=== PATIENT | male | born 1945 | race Caucasian/White ===

== ENCOUNTER 2016-12-11 07:55 | Inpatient (IN) | payer MEDICARE, OTHER ==
[2016-12-11] VITALS (9 sets, daily range): BP systolic 129–157; BP diastolic 64–78; PULSE 65–78; RESP 23; Ht 175.3 cm; Wt 75.0 kg
[~2016-12-11] VITALS: Ht 175.3 cm; Wt 75.0 kg
[2016-12-11 08:12] LABS: ADD SCAN DIFF NO
[2016-12-11 08:20] LABS: BASOPHILS % 0.3 % (0.0-2.0); EOSINOPHILS # 0.1 10^3/ul (0.0-0.5); EOSINOPHILS % 0.8 % (0.0-7.0); HEMATOCRIT 42.3 % (42.0-52.0); HEMOGLOBIN 13.5 g/dl (14.0-18.0); LYMPHOCYTES # 0.9 10^3/ul (0.8-2.9); LYMPHOCYTES % 6.9 % (15.0-51.0); MEAN CORPUSCULAR HEMOGLOBIN 28.4 pg (29.0-33.0); MEAN CORPUSCULAR HGB CONC 31.9 g/dl (32.0-37.0); MEAN CORPUSCULAR VOLUME 89.1 fl (82.0-101.0); MEAN PLATELET VOLUME 10.5 fl (7.4-10.4); MONOCYTE # 0.6 10^3/ul (0.3-0.9); MONOCYTES % 4.5 % (0.0-11.0); NEUTROPHIL # 11.3 10^3/ul (1.6-7.5); NEUTROPHILS % 87.1 % (39.0-77.0); PLATELET COUNT 240 10^3/UL (140-415); RED BLOOD COUNT 4.75 10^6/ul (4.70-6.10); RED CELL DISTRIBUTION WIDTH 16.4 % (11.5-14.5)
[2016-12-11 08:31] LABS: ALBUMIN 4.2 g/dl (3.3-4.9)
[2016-12-11 08:32] LABS: POTASSIUM 4.2 mmol/L (3.5-5.1)
[2016-12-11 08:34] LABS: ALBUMIN/GLOBULIN RATIO 1.4; CREATININE 4.8 mg/dl (0.61-1.24); TOTAL PROTEIN 7.2 g/dl (6.1-8.1)
[2016-12-11 08:36] LABS: INR 1.15; PROTIME 14.7 Sec (12.2-14.2); PT RATIO 1.1
[2016-12-11 08:37] LABS: PARTIAL THROMBOPLASTIN TIME 56.7 Sec (25.0-35.0)
[2016-12-11 08:43] LABS: TROPONIN-I 0.033 ng/ml (0.00-0.12)
[2016-12-11] MEDS ORDERED: ALBU2.5V3 NEB ×2 (08:45→09:51)
[2016-12-11] MEDS ORDERED: SITA25TA3 PO (08:45)
[2016-12-11] MEDS ORDERED: AMIO200T2 PO (08:46)
--- NOTE | 2016-12-11 08:51 | RADRPT ---
PROCEDURE: XR Chest. CLINICAL INDICATION: Chest pain , sepsis TECHNIQUE: Single frontal view of the chest was obtained COMPARISON: None FINDINGS: The heart is enlarged. The thoracic aorta is calcified. There is a right-sided Perma-Cath in place. There are patchy right upper lobe, right lower lobe and left perihilar infiltrates. There is no pleural effusion or pneumothorax. RPTAT: AA IMPRESSION: Patchy right upper lobe, right lower lobe and left perihilar infiltrates. Mild cardiomegaly. Calcified aorta consistent with atherosclerotic disease. .Rigoberto Cobos MD, MD Date Time Electronically viewed and signed by .Rigoberto Cobos MD, on 12/11/2016 08:51 .S/
[2016-12-11] MEDS ORDERED: CEFEPIME 2GM/50 ML (PMX) 50 ML IVPB STA (08:55)
[2016-12-11] MEDS ORDERED: VANCOMYCIN 1 GM (PMX) 250 ML IVPB ONE (09:00)
[2016-12-11 09:03] LABS: AADO2 Arterial 240.8 mmHg (7.0-24.0); Allen Test ACCEPTAB; Arterial Base Excess -4.8 mmol/L (-3.0-3); Arterial COHb 0.4 % (0.0-3.0); Arterial Fraction of Oxyhgb 98.9 % (93.0-99.0); Arterial HCO3 21.6 mmol/L (22.0-26.0); Arterial MetHb 0.4 % (0.0-1.5); Arterial Total Hemglobin 14.2 g/dl (12.0-18.0); Blood Gas IEPAP 20/8; MODE MASK - BIPAP
[2016-12-11] MEDS ORDERED: SERT25TA83 PO (09:47)
[2016-12-11] MEDS ORDERED: AMLO-147 PO (09:47)
[2016-12-11] MEDS ORDERED: FURO80TA3 PO (09:47)
[2016-12-11] MEDS ORDERED: HYDR5TAB PO (09:48)
[2016-12-11] MEDS ORDERED: METO50TA16 PO (09:48)
[2016-12-11] MEDS ORDERED: TAMS0.4C2 PO (09:49)
[2016-12-11] MEDS ORDERED: METO-429 PO (09:49)
[2016-12-11] MEDS ORDERED: ASPI-716 PO (09:49)
[2016-12-11] MEDS ORDERED: BUDE6.9H INHALATION (09:50)
[2016-12-11] MEDS ORDERED: LORA1TAB PO (09:50)
[2016-12-11] MEDS ORDERED: ATOR20TA38 PO (09:50)
[2016-12-11] MEDS ORDERED: IPRA3AMP INHALATION (09:51)
--- NOTE | 2016-12-11 10:18 | CONS ---
Date/Time of Note Date/Time of Note DATE: 12/11/16 TIME: 10:13 Assessment/Plan Assessment/Plan Additional Assessment/Plan ABG, chest x-ray and labs were reviewed. Chest x-ray showing bilateral pneumonia. Assessment recommendations; next 1. Patient admitted for bilateral pneumonia currently on vancomycin and cefepime. 2. End-stage renal disease on hemodialysis. 3. History of pheochromocytoma status post adrenal surgery. 4. Diabetes. Continue BiPAP for now add Levaquin 50 mg IV daily. He needs to be admitted to ICU. If he decompensates, likely will need intubation. I did have a detailed discussion the patient's son and at bedside and answered all questions. Consultation Date/Type/Reason Admit Date/Time Date of Consultation: Dec 11, 2016 Type of Consultation: Pulmonary/critical care Reason for Consultation Pulmonary consultation obtained for evaluation of severe shortness of breath due to bilateral pneumonia. History of present illness; patient is a pleasant 70-year-old white male who was brought into the emergency room sent him over from dialysis center with complaints of shortness of breath. According to the patient's son and were present in the room the patient has been experiencing shortness of breath since early this morning and prior to that he was doing fairly well. There is also history of low-grade fever with scant cough and sputum production. Upon evaluation he had a chest x-ray was done which is showing bilateral pneumonia more pronounced in the right lower lobe area. Patient has been started on BiPAP with some relief in symptoms there is most of any nausea vomiting any high -grade fever or chills. Past medical history; next 1. End-stage renal disease on hemodialysis. 2. Diabetes next 3. 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 History of adrenal gland surgery due to pheochromocytoma. 5. History of prostate cancer status post prostatectomy. 6. COPD. Medications; were reviewed. Allergies; none. Social history; patient quit smoking 8 years ago. No acute alcohol or drug abuse. Family history; patient is his is present in the room patient has 2 sons. Occupational history; patient was involved in shipping business. Review of systems; limited review of systems could be obtained as the patient is on BiPAP. Patient denies any headache, seizures. Any chest pain. Angina. Complains of cough with scant sputum production. Shortness of breath is markedly improved. Denies any abdominal pain, nausea vomiting, any diarrhea. General examination; elderly male, appears in mild distress. Awake and alert. Social History Smoking Status: Never smoker Exam/Review of Systems Vital Signs Vitals Vital Signs Date Time Temp Pulse Resp B/P Pulse Ox O2 Delivery O2 Flow Rate FiO2 12/11/16 09:00 69 99 30 12/11/16 08:14 Bag Valve Mask 12/11/16 07:57 98.1 28 155/85 Exam HEENT exam; supple neck, no JVD. No lymphadenopathy. Midline trachea. No thyromegaly. Pharynx was not examined. She has a few remaining teeth. Pupils are midsize and reactive to light. Chest examination; scattered crackles bilaterally. S1-S2 audible, no murmurs. Regular rhythm. There is a right subclavian dialysis catheter in place. Abdomen examination; soft, nondistended. Nontender. No organomegaly. Bowel sounds audible. Extremity examination; no peripheral edema. No clubbing. P D DRIVER examination; no focal deficit. Results Result Diagram: 12/11/1680412/11/16804 Results 24 hrs Laboratory Tests Test 12/11/16 07:57 12/11/16 08:05 Arterial Blood HCO3 21.6 L Arterial Blood Base Excess -4.8 L Arterial Blood Oxygen Saturation 99.7 Landry Test ACCEPTAB Arterial Blood Gas Puncture Site Right Radial Arterial Blood Carboxyhemoglobin 0.4 Arterial Blood Date Drawn 12/11/2016 8:55:33 AM Arterial Blood Methemoglobin 0.4 Arterial Blood pCO2 (Temp correct) 44.6 Arterial Blood pH (Temp corrected) 7.302 L Arterial Blood pO2 (Temp corrected) 427.6 H Blood Gas A-a O2 Differential 240.8 H Blood Gas Actual Respiration Rate 34 Blood Gas IPAP/EPAP Ratio 20/8 Blood Gas Modality MASK - BIPAP Blood Gas Notified Time 12/11/2016 9:03:18 AM Blood Gas Notified Whom JLD Blood Gas Respiration Rate 16.0 Blood Gas Specimen Source Blood arterial Blood Gas Temperature 37.0 FiO2 100.0 Oxyhemoglobin Percent 98.9 Total Hemoglobin 14.2 Activated Partial Thromboplast Time 56.7 H Alanine Aminotransferase (ALT/SGPT) 38 Albumin 4.2 Albumin/Globulin Ratio 1.40 Alkaline Phosphatase 80 Anion Gap 22 H Aspartate Amino Transf (AST/SGOT) 31 Basophils # 0.0 Basophils % 0.3 Blood Urea Nitrogen 66 H Calcium Level 9.0 Carbon Dioxide Level 28 Chloride Level 93 L Creatinine 4.80 H Direct Bilirubin 0.00 Eosinophils # 0.1 Eosinophils % 0.8 Globulin 3.00 Glucose Level 121 Hematocrit 42.3 Hemoglobin 13.5 L INR International Normalized Ratio 1.15 Indirect Bilirubin 0.0 Lactic Acid Level 0.8 Lymphocytes # 0.9 Lymphocytes % 6.9 L Mean Corpuscular Hemoglobin 28.4 L Mean Corpuscular Hemoglobin Concent 31.9 L Mean Corpuscular Volume 89.1 Mean Platelet Volume 10.5 H Monocytes # 0.6 Monocytes % 4.5 Neutrophils # 11.3 H Neutrophils % 87.1 H Nucleated Red Blood Cells # 0.0 Nucleated Red Blood Cells % 0.0 Platelet Count 240 Potassium Level 4.2 Prothrombin Time 14.7 H Prothrombin Time Ratio 1.1 Red Blood Count 4.75 Red Cell Distribution Width 16.4 H Sodium Level 139 Total Bilirubin 0.0 L Total Protein 7.2 Troponin I 0.033 White Blood Count 13.0 H Medications Medications Current Medications Vancomycin HCl (Vancocin) 250 ml @ 125 mls/hr ONCE ONCE IVPB Last administered on 12/11/16 10:02; Admin Dose 125 MLS/HR; Start 12/11/16 at 09:00; Stop 12/11/16 at 10:59 MADONNA MORALES Dec 11, 2016 10:18
--- NOTE | 2016-12-11 10:23 | ERA ---
ER Documentation Chief Complaint Date/Time DATE: 12/11/16 TIME: 10:20 Chief Complaint BROUGHT IN VIA EMS DUE TO SOB DURING DIALSYS FOR 30 MINUTES HPI Patient is a 70-year-old male with hypertension, diabetes, and dialysis who presents with shortness of breath. The patient is not on home oxygen. The patient was at dialysis and had 30 minutes of dialysis but they stopped it because he was so short of breath. The symptoms started last night but were worse today. He denies fevers. ROS All systems reviewed and are negative except as per history of present illness. Medications Home Meds Reported Medications Ipratropium-Albuterol (Ipratropium-Albuterol) 0.5-3 Mg/3 Ml Ampul.neb, 3 ML INHALATION Q6, #30 VIAL 12/11/16 Albuterol Sulfate* (Albuterol Sulfate* Neb) 0.083%-3 Ml Neb, 1.25 MG NEB Q3H Y for WHEEZING AND SOB, #30 VIAL 12/11/16 Budesonide-Formoterol Fumarate* (Symbicort*) 80-4.5 Mcg Hfa.aer.ad, 2 PUFF INHALATION BID, BOTTLE 12/11/16 Atorvastatin Calcium* (Atorvastatin Calcium*) 20 Mg Tablet, 20 MG PO QHS, #30 TAB 12/11/16 Lorazepam* (Lorazepam*) 1 Mg Tablet, 1 MG PO DAILY Y for ANXIETY, #30 TAB 12/11/16 Aspirin* (Ecotrin*) 81 Mg Tablet.dr, 81 MG PO DAILY, TAB 12/11/16 Tamsulosin Hcl* (Tamsulosin Hcl*) 0.4 Mg Cap.er.24h, 0.4 MG PO HS, CAP 12/11/16 Metoprolol Tartrate* (Lopressor*) 50 Mg Tab, 50 MG PO BID, #60 TAB 12/11/16 Hydrocortisone* (Cortef*) 5 Mg Tab, 10 MG PO DAILY, #120 TAB 12/11/16 Sertraline Hcl* (Sertraline Hcl*) 25 Mg Tablet, 25 MG PO DAILY, #30 TAB 12/11/16 Amlodipine Besylate* (Amlodipine Besylate*) 10 Mg Tablet, 10 MG PO DAILY, #30 TAB 12/11/16 Furosemide* (Furosemide*) 80 Mg Tablet, 80 MG PO DAILY, #30 TAB 12/11/16 Amiodarone Hcl* (Amiodarone Hcl*) 200 Mg Tablet, 200 MG PO DAILY, #30 TAB 12/11/16 Sitagliptin* (Januvia*) 25 Mg Tablet, 25 MG PO DAILY, #30 TAB 12/11/16 Discontinued Reported Medications Metoprolol Succinate* (Toprol XL*) 50 Mg Tab.er.24h, 50 MG PO DAILY, #30 TAB 12/11/16 Albuterol Sulfate* (Albuterol Sulfate* Neb) 0.083%-3 Ml Neb, 2.5 MG NEB Q4 Y for WHEEZING AND SOB, #30 VIAL 12/11/16 Allergies Allergies: Coded Allergies: No Known Allergy (Unverified , 12/11/16) PMhx/Soc Positive for hypertension, diabetes, and dialysis Medical and Surgical Hx: pt denies Surgical Hx Hx Alcohol Use: No Hx Tobacco Use: No Smoking Status: Never smoker FmHx Family History: No diabetes Physical Exam Vitals Vital Signs Date Time Temp Pulse Resp B/P Pulse Ox O2 Delivery O2 Flow Rate FiO2 12/11/16 09:00 69 99 30 12/11/16 08:14 Bag Valve Mask 12/11/16 07:57 98.1 78 28 155/85 91 Physical Exam Const: Moderate distress secondary to shortness of breath Head: Atraumatic Eyes: Normal Conjunctiva ENT: Normal External Ears, Nose and Mouth. Neck: Full range of motion..~ No meningismus. Resp: Rhonchi bilaterally Cardio: Tachycardic rate without murmur Abd: Soft, non tender, non distended. Normal bowel sounds Skin: No petechiae or rashes Back: No midline or flank tenderness Ext: No cyanosis, or edema Neur: Awake and alert Result Diagram: 12/11/16 0812/11/16 0805 Results 24 hrs Laboratory Tests Test 12/11/16 07:57 12/11/16 08:05 Arterial Blood HCO3 21.6mmol/L Arterial Blood Base Excess -4.8mmol/L Arterial Blood Oxygen Saturation 99.7mmHG Landry Test ACCEPTAB Arterial Blood Gas Puncture Site Right Radial Arterial Blood Carboxyhemoglobin 0.4% Arterial Blood Date Drawn 12/11/2016 8:55:33 AM Arterial Blood Methemoglobin 0.4% Arterial Blood pCO2 (Temp correct) 44.6mmhg Arterial Blood pH (Temp corrected) 7.302 Arterial Blood pO2 (Temp corrected) 427.6mmHG Blood Gas A-a O2 Differential 240.8mmHg Blood Gas Actual Respiration Rate 34 Blood Gas IPAP/EPAP Ratio 20/8 Blood Gas Modality MASK - BIPAP Blood Gas Notified Time 12/11/2016 9:03:18 AM Blood Gas Notified Whom JLD Blood Gas Respiration Rate 16.0 Blood Gas Specimen Source Blood arterial Blood Gas Temperature 37.0C FiO2 100.0% Oxyhemoglobin Percent 98.9% Total Hemoglobin 14.2g/dl Activated Partial Thromboplast Time 56.7Sec Alanine Aminotransferase (ALT/SGPT) 38IU/L Albumin 4.2g/dl Albumin/Globulin Ratio 1.40 Alkaline Phosphatase 80IU/L Anion Gap 22 Aspartate Amino Transf (AST/SGOT) 31IU/L Basophils # 0.010^3/ul Basophils % 0.3% Blood Urea Nitrogen 66mg/dl Calcium Level 9.0mg/dl Carbon Dioxide Level 28mmol/L Chloride Level 93mmol/L Creatinine 4.80mg/dl Direct Bilirubin 0.00mg/dl Eosinophils # 0.110^3/ul Eosinophils % 0.8% Globulin 3.00g/dl Glucose Level 121mg/dl Hematocrit 42.3% Hemoglobin 13.5g/dl INR International Normalized Ratio 1.15 Indirect Bilirubin 0.0mg/dl Lactic Acid Level 0.8mmol/L Lymphocytes # 0.910^3/ul Lymphocytes % 6.9% Mean Corpuscular Hemoglobin 28.4pg Mean Corpuscular Hemoglobin Concent 31.9g/dl Mean Corpuscular Volume 89.1fl Mean Platelet Volume 10.5fl Monocytes # 0.610^3/ul Monocytes % 4.5% Neutrophils # 11.310^3/ul Neutrophils % 87.1% Nucleated Red Blood Cells # 0.010^3/ul Nucleated Red Blood Cells % 0.0/100WBC Platelet Count 71004^3/UL Potassium Level 4.2mmol/L Prothrombin Time 14.7Sec Prothrombin Time Ratio 1.1 Red Blood Count 4.7510^6/ul Red Cell Distribution Width 16.4% Sodium Level 139mmol/L Total Bilirubin 0.0mg/dl Total Protein 7.2g/dl Troponin I 0.033ng/ml White Blood Count 13.010^3/ul Current Medications Medications (Trade) Dose Ordered Sig/Crescencio Route PRN Reason Start Time Stop Time Status Last Admin Dose Admin Cefepime HCl 50 ml @ 100 mls/hr ONCE STAT IVPB 12/11/16 08:55 12/11/16 09:24 DC 12/11/16 09:29 Vancomycin HCl (Vancocin) 250 ml @ 125 mls/hr ONCE ONCE IVPB 12/11/16 09:00 12/11/16 10:59 12/11/16 10:02 Ondansetron HCl (Zofran Inj) 4 mg ER BRIDGE PRN IV NAUSEA AND/OR VOMITING 12/11/16 09:30 12/12/16 09:29 Acetaminophen 650 mg 650 mg ER BRIDGE PRN PO MILD PAIN/FEVER 12/11/16 09:30 12/12/16 09:29 Levofloxacin/ Dextrose (Levaquin 250 Mg/ D5W 50 ml (Pmx)) 50 ml @ 50 mls/hr ONCE ONCE IVPB 12/11/16 10:30 12/11/16 11:29 Procedures/MDM EKG read by me: Rate/Rhythm: Regular rate and rhythm at a rate of 76 Intervals: Normal Impression: No evidence of ischemia or arrhythmia Chest x-ray shows pneumonia per radiology. Admit MDM: Patient's infectious symptoms have not stabilized and the patient is at risk of rapid decompensation. The patient will be admitted for careful hydration, antibiotic therapy, and infectious source control. Severe Sepsis criteria: Infectious source: Pneumonia End organ damage indicated by: Respiratory failure requiring BiPAP Sepsis Management: Time of recognition of sepsis: Upon arrival Within 3 hours of recognition: Blood cultures x 2 before broad-spectrum antibiotics: Yes 30 ml/kg NS bolus held as the patient has dialysis and I am concerned about fluid overload Initial lactate 0.8 Repeat lactate pending Time of recognition of septic shock: No septic shock Septic Shock Assessment: Any lactic acid > 4.0 No Persistent hypotension (SBP < 90 or 40 mmHg drop, MAP < 65) despite 30 mL/kg IV fluid bolus No Volume Re-assessment for Septic Shock (post 30 ml/kg bolus): No septic shock at this time Persistent Hypotension Treatment: Comfort care No Central line Not Required Vasopressor started Not required I considered further perfusion assessment with CVP measurement, SCVO2, bedside ultrasound volume assessment, passive leg raise, trial of further fluid bolus. And proceeded with vancomycin and cefepime IV, BiPAP therapy, and admission Accepting Care Team Current data and ongoing care discussed. Admitting Physician: Dr. Gonzalez as the patient says his doctor is Dr. Landeros [employer] Machine Shop Supervisor(s): None Outstanding Data: Culture results and repeat lactic acid Critical Care: Critical care time 35 minutes excluding all billable procedures Emergent fluid management while maintaining close respiratory support. Provision of immediate and broad-spectrum antibiotic therapy. Simultaneous assessment for possible sources in order to direct targeted therapy. Consideration for invasive and chemical support to prevent cardiopulmonary collapse. Departure Diagnosis: Primary Impression: Severe sepsis Additional Impressions: Shortness of breath Pneumonia Qualified Code: J18.9 - Pneumonia due to infectious organism, unspecified laterality, unspecified part of lung Condition: Critical WILFREDO TAYLOR MD Dec 11, 2016 10:23
[2016-12-11] MEDS ORDERED: LEVOFLOXACIN 250MG/D5W (PMX) 50 ML IVPB ONE (10:30)
[2016-12-11] MEDS: ACETAMINOPHEN 325 MG TAB PO PRN (12:19)
[2016-12-11] MEDS: ONDANSETRON 4 MG INJ IV PRN ×2 (12:56→22:30)
--- NOTE | 2016-12-11 13:50 | CONS ---
DATE OF ADMISSION: 12/11/2016 DATE OF CONSULTATION: NEPHROLOGY CONSULTATION REASON FOR CONSULTATION: End-stage renal disease. PHYSICIAN REQUESTING CONSULT: Fawad Valente MD HISTORY OF PRESENT ILLNESS: This is a 70-year-old male with a past medical history of end-stage farhat al disease, on dialysis Saturday, , Saturday with access PermCath. The patient's primary nep hrologist is Dr. Oquendo, history of West Nile encephalitis, history of diabetes, hypertension, hist ory of arrhythmia, history of BPH, anxiety disorder, coronary artery disease, dyslipidemia who was b rought into [facility] Emergency Room from his dialysis center due to shortness of breath. The patient was initiated on dialysis; however, after about 30 minutes was stopped because the patient was short of breath and tachypneic. The patient had these symptoms that started approx imately 24 hours ago, but progressively worsened. Dialysis was stopped. The patient was brought in to the emergency room. Upon arrival, the patient was noted to be hypertensive with systolic pressur es in the 160s. He was hypoxic. The patient was placed on BiPAP. Chest x-ray was obtained which s howed patchy right upper lobe and right lower lobe infiltrates. In the emergency room, the patient was given IV antibiotics. Upon my evaluation of the patient at this time, he is currently tachypneic, but denies any recent ep isodes of hemoptysis, hemetemesis, hematochezia. PAST MEDICAL HISTORY: As stated above, history of end-stage renal disease, history of anemia, histo ry of mineral bone disorder, history of West Nile encephalitis, history of diabetes, history of hype rtension, history of coronary artery disease, history of BPH. PAST SURGICAL HISTORY: Status post PermCath placement. ALLERGIES: NO KNOWN DRUG ALLERGIES. FAMILY HISTORY: Noncontributory. MEDICATIONS: The patient's medications have been reviewed. SOCIAL HISTORY: No alcohol use. REVIEW OF SYSTEMS: A 14-point review of systems was conducted. Pertinent positives as stated in HP I, otherwise negative. PHYSICAL EXAMINATION: VITAL SIGNS: Blood pressure 132/72, respiration is 36, pulse 72, temperature 98.7. HEENT: Head is normocephalic. Pupils are reactive to light. NECK: Supple. HEART: Regular rate. LUNGS: Show diminished breath sounds at the base. Positive rhonchi and crackles. ABDOMEN: Soft, nontender to palpation, no rebound or guarding. EXTREMITIES: Negative for clubbing, cyanosis, no edema. DERMATOLOGIC: No rashes. MUSCULOSKELETAL: No joint effusions. NEUROLOGIC: Limited exam due to lack of patient cooperation. LABORATORY DATA: Shows sodium 139, potassium 4.2, chloride 93, BUN 66, creatinine 4.80. White coun t ____, hemoglobin 13.5, hematocrit 42.3, platelet count 240. ASSESSMENT AND PLAN: This is a 70-year-old male who presents with: 1. End-stage renal disease. The patient is on dialysis Saturday, , Saturday with access of a PermCath. Plan is for hemodialysis today for 3 hours, 3K bath, calcium 2.5, will ultrafiltrate as tolerated. 2. Anemia of end-stage renal disease. Hemoglobin levels are stable. Continue to monitor. No need for Epogen. 3. Mineral bone disorder. Will monitor calcium and phosphorus levels. Will resume phosphate binde rs. 4. Hypertension. We will continue current blood pressure regimen. We will ultrafiltrate with hemo dialysis. 5. Acute hypoxemic respiratory failure secondary to pneumonia. Continue current antibiotic therapy , continue BiPAP, ABGs have been reviewed. Follow up with pulmonary. 6. Sepsis secondary to healthcare-associated pneumonia. Continue current antibiotic regimen. We w ill follow up the cultures. Consider infectious disease evaluation. 7. History of prostate cancer status post prostatectomy. 8. History of West Nile encephalitis. 9. History of pheochromocytoma. 10. Adrenal insufficiency. Continue Cortef. Thank you, Dr. Valente, for this interesting consult. It will be a pleasure to follow patient with y ou throughout the hospital course. Dictated By: MANDY CERON/HEDY Conf#: [id number] DID#: [id number]
--- NOTE | 2016-12-11 14:27 | CONS ---
DATE OF ADMISSION: 12/11/2016 DATE OF CONSULTATION: 12/11/2016 TYPE OF CONSULTATION: Infectious Disease. REASON FOR CONSULTATION: Antibiotic management. HISTORY OF PRESENT ILLNESS: Mike Trent is 70-year-old male with end-stage renal disease, who is being seen for antibiotic management. Past problems include: 1. End-stage renal disease on hemodialysis with access PermCath. His primary hand plug shaper is Dr. Jez barkley. 2. History of West Nile encephalitis. 3. Adult-onset diabetes mellitus. 4. Hypertension. 5. Cardiac arrhythmia. 6. History of benign prostatic hypertrophy. 7. Anxiety disorder. 8. Coronary artery disease. 9. Dyslipidemia. Acutely, the patient was brought into [facility] for dialysis due to shortness of breath. He was tachypneic. Symptoms started 24 hours prior to admission, but got worse. Came to the emerge ncy room. His blood pressure in the 160s, and he was hypoxic. The patient was placed on a BiPAP ma sk. Chest x-ray showed patchy right upper lobe and right lower lobe infiltrates. On admission, his white count was 13,000, H and H of 13.5 and 42.3, platelet count 240,000. BUN and creatinine 66/4. 8. Chest x-ray as noted showed patchy right upper and right lower lobe and left perihilar infiltrat es. Smear for influenza A and B were negative. PAST MEDICAL HISTORY: Operations as outlined, status post PermCath placement. MEDICATIONS: Per chart. PAST MEDICAL HISTORY: As outlined. FAMILY HISTORY: Noncontributory. SOCIAL HISTORY: Does not smoke, drink, or abuse drugs. ALLERGIES: NONE TO PENICILLIN, SULFA, OR FOODS. REVIEW OF SYSTEMS: Noncontributory. PHYSICAL EXAMINATION: GENERAL: The patient is a well-developed, well-nourished male, who is awake, responsive, in no acut e distress. VITAL SIGNS: Stable. He is afebrile. SKIN: Without generalized rash. HEENT: Within normal limits. NECK: Supple. LYMPH NODES: None palpable. CHEST: Decreased breath sounds at the bases with scattered rhonchi and rales. HEART: Without murmur or gallop. ABDOMEN: Soft, nontender, without organosplenomegaly or masses. EXTREMITIES: Without cyanosis, clubbing, or edema. RECTAL AND GENITAL: Deferred. NEUROLOGIC: No focal neurological abnormalities. IMPRESSION AND PLAN: Patient is a 70-year-old male who comes in now with end-stage renal disease an d also evidence of acute hypoxemic respiratory failure secondary to pneumonia. He is on antibiotic therapy. He is on BiPAP. He was started on Levaquin. He received 1 dose of vancomycin. He receiv ed cefepime and Levaquin. I would continue the cefepime. I will dictate my findings to Dr. Gonzalez and also Dr. Forbes, who saw the patient in pulmonary consultation. White count today is 13,000. W ill continue current therapy. Dictated By: KAYDEN EID MD, JD/HEDY Conf#: [id number] DID#: [id number]
[2016-12-11] MEDS: ALBUMIN HUMAN 25% 100 ML IV SCH ×2 (20:22→20:30)
[2016-12-12] VITALS (21 sets, daily range): BP systolic 115–145; BP diastolic 54–69; PULSE 65–90; RESP 17–28; TEMP 100
[2016-12-12 00:56] LABS: Allen Test ACCEPTAB; Arterial Base Excess 1.1 mmol/L (-3.0-3); Arterial COHb 0.3 % (0.0-3.0); Arterial Fraction of Oxyhgb 98.4 % (93.0-99.0); Arterial HCO3 25.8 mmol/L (22.0-26.0); Arterial MetHb 0.4 % (0.0-1.5); Arterial Total Hemglobin 14.6 g/dl (12.0-18.0); Blood Gas IEPAP 15/5; MODE MASK - BIPAP
[2016-12-12] MEDS ORDERED: LORAZEPAM 2 MG INJ IV ONE (01:00)
[2016-12-12] MEDS: ACETAMINOPHEN 325 MG TAB PO PRN (01:53)
[2016-12-12 05:42] LABS: ABNORMAL IP MESSAGE 1; ADD SCAN DIFF NO; BASOPHILS % 0.3 % (0.0-2.0); EOSINOPHILS % 0.1 % (0.0-7.0); HEMATOCRIT 41.6 % (42.0-52.0); LYMPHOCYTES # 0.3 10^3/ul (0.8-2.9); MEAN CORPUSCULAR HGB CONC 31.3 g/dl (32.0-37.0); MEAN CORPUSCULAR VOLUME 89.5 fl (82.0-101.0); MEAN PLATELET VOLUME 10.7 fl (7.4-10.4); MONOCYTE # 0.5 10^3/ul (0.3-0.9); MONOCYTES % 4.5 % (0.0-11.0); NEUTROPHIL # 9.2 10^3/ul (1.6-7.5); NEUTROPHILS % 91.8 % (39.0-77.0); PLATELET COUNT 205 10^3/UL (140-415); RED BLOOD COUNT 4.65 10^6/ul (4.70-6.10); RED CELL DISTRIBUTION WIDTH 16.5 % (11.5-14.5); WHITE BLOOD COUNT 10.1 10^3/ul (4.8-10.8)
[2016-12-12 05:51] LABS: POTASSIUM 3.8 mmol/L (3.5-5.1)
[2016-12-12 05:54] LABS: CREATININE 3.79 mg/dl (0.61-1.24)
[2016-12-12 05:55] LABS: CALCIUM 8.9 mg/dl (8.4-10.2); MAGNESIUM 2.1 mg/dl (1.7-2.5); PHOSPHORUS 5.3 mg/dl (2.5-4.9)
[2016-12-12] MEDS ORDERED: VANCOMYCIN IV PER PHARMACY XX SCH (10:30)
[2016-12-12] MEDS ORDERED: ALBUTEROL/IPRATROPIUM (NEB) 3 ML AMP HHN PRN (10:30)
[2016-12-12] MEDS ORDERED: ALBUTEROL 0.083% (NEB) 2.5 MG/3 ML AMP NEB PRN (10:30)
[2016-12-12] MEDS ORDERED: NACL 0.9% 3 ML SYG IV SCH (10:30)
[2016-12-12] MEDS ORDERED: morphine 2 MG INJ IV PRN (10:30)
[2016-12-12] MEDS ORDERED: ACETAMINOPHEN 650 MG SUPP PR PRN (10:30)
[2016-12-12] MEDS ORDERED: LORAZEPAM 1 MG TAB PO PRN (10:30)
[2016-12-12] MEDS ORDERED: DOCUSATE SODIUM 100 MG CAP PO PRN (10:30)
[2016-12-12] MEDS ORDERED: NITROGLYCERIN (SL) 0.4 MG TAB SL PRN (10:30)
[2016-12-12] MEDS ORDERED: LINAGLIPTIN 5 MG TABLET PO SCH (11:30)
[2016-12-12] MEDS: HYDROCORTISONE 5 MG TAB PO SCH (11:30)
[2016-12-12] MEDS ORDERED: CEFTRIAXONE 1 GM/50 ML (PMX) 50 ML IVPB SCH (12:00)
[2016-12-12 12:01] LABS: ADD UMIC YES; URINE BILIRUBIN (Dip) NEGATIVE (NEGATIVE); URINE BLOOD (Dip) NEGATIVE (NEGATIVE); URINE COLOR LT. YELLOW (YELLOW); URINE GLUCOSE (Dip) NEGATIVE (NEGATIVE); URINE KETONES (Dip) TRACE (NEGATIVE); URINE LEUKOCYTE ESTERASE (Dip) NEGATIVE (NEGATIVE); URINE NITRITE (Dip) NEGATIVE (NEGATIVE); URINE TOTAL PROTEIN (Dip) 2+ (NEGATIVE); URINE UROBILINOGEN (Dip) 0.2 E.U./dL (0.1-1.0)
--- NOTE | 2016-12-12 12:03 | PN ---
DATE: SUBJECTIVE: The patient remains critically ill on BiPAP. The patient had hemodialysis yesterday, t olerated well with 3 liters removed. No other events noted. No hemoptysis, hematemesis or hematoch ezia. OBJECTIVE: VITAL SIGNS: Blood pressure is 129/57, respirations 20, pulse 63, temperature 100.1. HEENT: Head is normocephalic. NECK: Supple. HEART: Regular rate. LUNGS: Show diminished breath sounds at base. Positive rhonchi. ABDOMEN: Soft, nontender to palpation without rebound or guarding. EXTREMITIES: Negative for clubbing, cyanosis, or edema. DERMATOLOGIC: No rashes. MUSCULOSKELETAL: No joint effusions. NEUROLOGIC: No change in exam. MEDICATIONS: The patient's medications have been reviewed. LABORATORY DATA: Shows sodium 138, potassium 2.8, chloride 94, BUN 46, creatinine 3.79. White coun t 10.1, hemoglobin 41.6, platelet count 205. The patient's ABG was reviewed. Blood cultures have b een reviewed, no growth to date. ASSESSMENT AND PLAN: 1. End-stage renal disease. Patient is on dialysis Saturday, and Saturday. The patient garrett d hemodialysis yesterday, tolerated well. Plan for dialysis again tomorrow. 2. Anemia of end-stage renal disease. Continue to monitor H and H levels. We will give Epogen as needed. 3. Mineral bone disorder. Patient's phosphorus levels are mildly elevated. Will continue phos bin ders once able to tolerate p.o. 4. Hypertension. Continue current blood pressure regimen. Continue ultrafiltration with dialysis. 5. Acute hypoxemic respiratory failure secondary to pneumonia. The patient remains on BiPAP, cheyanne [place]. Wean off as possible. Continue antibiotics. Follow up with pulmonary. 6. Sepsis secondary to health care associated pneumonia. Continue current antibiotic regimen. 7. History of prostate cancer. 8. History of West Nile encephalitis. 9. History of pheochromocytoma. 10. Adrenal insufficiency. The patient is on Cortef. Will continue to monitor. Dictated By: MANDY CERON/NTS Conf#: [id number] DID#: [id number]
[2016-12-12 12:12] LABS: URINE RBCS NONE SEEN /HPF (0)
[2016-12-12] MEDS ORDERED: VANCOMYCIN 1.5 GM in SOD CHLORIDE 0.9% 250 ML IVPB SCH ×2 (12:30→13:00)
--- NOTE | 2016-12-12 12:43 | HP ---
DATE OF ADMISSION: 12/11/2016 SPECIAL CLASS WELDER: 1. Senior Medical Transcriptionist. 2. Model Maker Plastic. 3. Infectious disease. CHIEF COMPLAINT: Shortness of breath. HISTORY OF PRESENT ILLNESS: This is a very pleasant 70-year-old gentleman with past medical history of asthma/COPD, oxygen dependent, atrial fibrillation, hypertension, dyslipidemia, anxiety, depress ion, diabetic mellitus, BPH who has COPD on home oxygen 2 liters, end-stage renal disease on hemodia lysis, who was at his dialysis center on 12/11/2016 and after having 30 minutes of dialysis the kaylah ent started to have difficulty with breathing and was sent to [facility] for furth er evaluation and treatment. According to patient the difficulty with breathing started the evening before, although, it started to increase in severity today. Therefore, after 30 minutes of dialysi s patient was sent to [facility] Emergency Room. The chest x-ray was found to show patchy right upper lobe, right lower lobe and left perihilar infiltrate, mild cardiomegaly, calcified aorta consistent with atherosclerotic disease. The patient was treated with Levaquin in the course of e emergency room and was placed on BiPAP. Nephrology and infectious disease doctor has been consult ed. At this time, the patient has remained on BiPAP, continued to complain of having shortness of b reath without any chest pain. The patient had 1 episode of vomiting during the course of the hospit al emergency room. PAST MEDICAL AND SURGICAL HISTORY: As above per HPI. MEDICATIONS: 1. Albuterol sulfate. 2. Combivent. 3. Amiodarone. 4. Amlodipine. 5. Aspirin. 6. Atorvastatin. 7. Symbicort. 8. Lasix. 9. Cortef. 10. Lorazepam. 11. Lopressor. 12. Sertraline. 13. Januvia. 14. Flomax. ALLERGIES: NO KNOWN DRUG ALLERGY. FAMILY HISTORY: Noncontributory secondary to advanced age. SOCIAL HISTORY: He used to smoke, quit about 10 years ago. No alcohol, no illicit drugs. REVIEW OF SYSTEMS: Positive for shortness of breath, nausea and vomiting. No headache, dizziness, lightheadedness. Positive for fever or chills. No change in visual acuity, diplopia, photophobia. No chest pain. Positive shortness of breath. Positive for wheezing. No recent travel history. N o sick contact. No neck pain, no restricted range of motion in upper and lower extremities. No dys uria, hematuria, urgency, incontinence. No change in the color of stool. PHYSICAL EXAMINATION: VITAL SIGNS: Temperature 100, pulse 60, respiration 20, blood pressure 129/57, oxygen 99% on BiPAP 40% FIO2. GENERAL APPEARANCE: The patient is not using any accessory muscles for breathing. EYES AND ENT: Conjunctivae and lids are normal. Pupils are normal. Extraocular normal. Hearing g rossly normal. Lips are normal. Oral mucosa is dry. NECK: Supple. Trachea is midline. No lymphadenopathy. RESPIRATORY: Effort is normal. Decreased breath sounds bilateral lower lung field with positive wh eezing. CARDIOVASCULAR: Normal S1, S2. Regular rhythm and rate. No murmur, no bruits, no edema. Peripher al pulses, radial pulses palpable. Cap refill is normal. CHEST: Normal expansion of thorax during inspiration. He is not using any accessory muscle for cesar athing. GASTROINTESTINAL: Abdomen is soft, nontender, not distended. Bowel sounds present. No guarding, n o rebound. GENITOURINARY: Deferred. MUSCULOSKELETAL: Upper and lower extremities within normal limits but are frail. NEUROLOGIC: He is awake, alert, and oriented. LABORATORY WORK AND IMAGING: WBC 10.1, hemoglobin 13, hematocrit 41.6, platelet 205. Sodium 138, p otassium 3.8, chloride 94, bicarbonate 24, BUN 46, creatinine 3.79, glucose 63, magnesium 2.1. ASSESSMENT AND PLAN: 1. Community-acquired pneumonia with positive chest x-ray of patchy right upper lobe and right lowe r lobe with questionable aspiration pneumonia. The patient has been started on vancomycin and Rocep hin. Pulmonology has been consulted. 2. End-stage renal disease on hemodialysis. 3. Essential hypertension well controlled on medical management. 4. Diabetes mellitus. At this time, patient is hypoglycemic. We will hold all diabetic medication . We will continue to monitor. Follow hemoglobin A1c. 5. Anxiety. Continue lorazepam. 6. Chronic obstructive pulmonary disease. Continue breathing treatment, hydrocortisone. Pulmonolo gy has been consulted. 7. History of arrhythmia. Continue amiodarone, Aspirin. 8. Dyslipidemia. Continue statin. 9. We will continue to monitor patient closely. Further recommendations, management and treatment as per clinical course. Total amount of time was spent for evaluation of patient and admission workup 40 minutes. Dictated By: KATI JAY/NTS Conf#: [id number] DID#: [id number]
[2016-12-12] MEDS: FAMOTIDINE 20 MG TAB PO SCH (12:47)
--- NOTE | 2016-12-12 14:24 | CONS ---
Date/Time of Note Date/Time of Note DATE: 12/12/16 TIME: 14:21 Assessment/Plan Assessment/Plan Additional Assessment/Plan Assessment recommendations; 1. Patient admitted with bilateral pneumonia, clinically improved on BiPAP. Currently on vancomycin and cefepime. 2. History of end-stage renal disease, on hemodialysis. 3. History of pheochromocytoma status post adrenal gland surgery. 5. 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 6. COPD. 7. Diabetes. Continue current treatment. Will obtain follow-up chest x-ray. Patient was evaluated in the ER still awaiting in-hospital bed. Consultation Date/Type/Reason Admit Date/Time Initial Consult Date 12/11/16 Type of Consultation: Pulmonary/critical care 24 HR Interval Summary Free Text/Dictation Patient's condition is improving. Patient is single shortness of breath is improving. Denies any cough, sputum production or any chest pain. Any fever chills. General exam; elderly male, currently in no distress on BiPAP, awake and alert. Exam/Review of Systems Vital Signs Vitals Vital Signs Date Time Temp Pulse Resp B/P Pulse Ox O2 Delivery O2 Flow Rate FiO2 12/12/16 13:00 65 99 40 12/12/16 09:18 20 129/57 BIPAP 12/12/16 07:00 100.0 Intake and Output 12/11/16 12/11/16 12/12/16 15:00 23:00 07:00 Intake Total 300 ml Output Total 4100 ml Balance -3800 ml Exam HEENT examination; supple neck, no JVD. No lymphadenopathy. Midline trachea. No neck masses. No thyromegaly. Chest examination; diminished breath sound bilaterally. No added sounds. S1- S2 audible, no murmurs. Regular rhythm. Abdomen examination; soft, nontender. No organomegaly. Bowel sounds audible. Extremity examination; no peripheral edema. RETROFIT INSTALLER examination no focal deficit. Results Result Diagram: 12/12/16 0528 12/12/16 0528 Results 24 hrs Laboratory Tests Test 12/11/16 16:00 12/12/16 00:34 12/12/16 05:28 12/12/16 08:46 Lactic Acid Level 1.2 Arterial Blood HCO3 25.8 Arterial Blood Base Excess 1.1 Arterial Blood Oxygen Saturation 99.1 Landry Test ACCEPTAB Arterial Blood Gas Puncture Site Right Radial Arterial Blood Carboxyhemoglobin 0.3 Arterial Blood Date Drawn 12/12/2016 12:40:02 AM Arterial Blood Methemoglobin 0.4 Arterial Blood pCO2 (Temp correct) 41.6 Arterial Blood pH (Temp corrected) 7.411 Arterial Blood pO2 (Temp corrected) 166.7 H Blood Gas A-a O2 Differential 143.0 H Blood Gas Actual Respiration Rate 30 Blood Gas IPAP/EPAP Ratio 15/5 Blood Gas Inspiratory Time 0.6 Blood Gas Modality MASK - BIPAP Blood Gas Notified Time 12/12/2016 12:56:20 AM Blood Gas Notified Whom AA Blood Gas Respiration Rate 16.0 Blood Gas Specimen Source Blood arterial Blood Gas Temperature 37.0 FiO2 50.0 Oxyhemoglobin Percent 98.4 Total Hemoglobin 14.6 Anion Gap 24 H Basophils # 0.0 Basophils % 0.3 Blood Urea Nitrogen 46 #H Calcium Level 8.9 Carbon Dioxide Level 24 Chloride Level 94 L Creatinine 3.79 #H Eosinophils # 0.0 Eosinophils % 0.1 Glucose Level 63 #L Hematocrit 41.6 L Hemoglobin 13.0 L Lymphocytes # 0.3 L Lymphocytes % 3.0 L Magnesium Level 2.1 Mean Corpuscular Hemoglobin 28.0 L Mean Corpuscular Hemoglobin Concent 31.3 L Mean Corpuscular Volume 89.5 Mean Platelet Volume 10.7 H Monocytes # 0.5 Monocytes % 4.5 Neutrophils # 9.2 H Neutrophils % 91.8 H Nucleated Red Blood Cells # 0.0 Nucleated Red Blood Cells % 0.0 Phosphorus Level 5.3 H Platelet Count 205 Potassium Level 3.8 Red Blood Count 4.65 L Red Cell Distribution Width 16.5 H Sodium Level 138 White Blood Count 10.1 # Bedside Glucose 78 Test 12/12/16 10:40 Urine Amorphous Urates FEW Urine Bilirubin NEGATIVE Urine Clarity CLEAR Urine Color LT. YELLOW Urine Glucose NEGATIVE Urine Hemoglobin NEGATIVE Urine Ketones TRACE Urine Leukocyte Esterase NEGATIVE Urine Microscopic RBC NONE SEEN Urine Microscopic WBC 0-2 Urine Nitrite NEGATIVE Urine Specific [place] 1.025 Urine Total Protein 2+ H Urine Urobilinogen 0.2 E.U./dL Urine pH 5.0 Medications Medications Current Medications Amiodarone HCl (Cordarone) 200 mg DAILY PO ; Start 12/13/16 at 09:00 Atorvastatin Calcium (Lipitor) 20 mg QHS PO ; Start 12/12/16 at 21:00 Furosemide (Lasix) 80 mg DAILY PO ; Start 12/13/16 at 09:00 Hydrocortisone (Cortef) 10 mg DAILY PO Last administered on 12/12/16 11:30; Admin Dose 10 MG; Start 12/12/16 at 11:30 Metoprolol Tartrate (Lopressor) 25 mg BID PO ; Start 12/12/16 at 21:00 Sertraline HCl (Zoloft) 25 mg DAILY PO ; Start 12/13/16 at 09:00 Tamsulosin HCl (Flomax) 0.4 mg HS PO ; Start 12/12/16 at 21:00 Salmeterol Xinafoate/ Fluticasone (Advair 100/50 Diskus) 1 inh BID INH ; Start 12/12/16 at 21:00 Ondansetron HCl (Zofran Inj) 4 mg Q6H PRN IV NAUSEA AND/OR VOMITING; Start 12/12 at 10:30 Aspirin (Aspirin) 81 mg DAILY PO ; Start 12/13/16 at 09:00 Nitroglycerin (Nitroglycerin (Sl Tab) 0.4 Mg) 1 tab Q5M PRN SL CHEST PAIN; Start 12/12/16 at 10:30 Acetaminophen (Tylenol Tab) 650 mg Q6H PRN PO PAIN LEVEL 1-3 OR FEVER; Start at 10:30 Acetaminophen (Tylenol Supp) 650 mg Q6H PRN [place] PAIN LEVEL 1-3 OR FEVER; Start 12/12/16 at 10:30 Morphine Sulfate (morphine) 1 mg Q4H PRN IV PAIN LEVEL 7-10; Start 12/12/16 at 10:30 Docusate Sodium (Colace) 100 mg Q12H PRN PO CONSTIPATION; Start 12/12/16 at 10: 30 Famotidine (Pepcid) 20 mg DAILY PO Last administered on 12/12/16 12:47; Admin Dose 20 MG; Start 12/12/16 at 12:00 Lorazepam (Ativan) 1 mg Q8H PRN PO ANXIETY; Start 12/12/16 at 18:30 Methylprednisolone Sodium Succinate 60 mg 60 mg Q8 IV ; Start 12/12/16 at 14:00; Stop 12/14/16 at 12:00 Vancomycin HCl 1.5 gm/Sodium Chloride 250 ml @ 83.333 mls/ hr ONCE IVPB Last administered on 3/8/17at 13:29; Admin Dose 83.333 MLS/HR; Start 12/12/16 at 13:00 ; Stop 12/12/16 at 15:00 Cefepime HCl (Maxipime 1gm/50 ml (Pmx)) 50 ml @ 100 mls/hr ONCE ONCE IVPB ; Start 12/12/16 at 14:30; Stop 12/12/16 at 14:59 MADONNA MORALES Dec 12, 2016 14:24
[2016-12-12] MEDS ORDERED: CEFEPIME 1GM/50 ML (PMX) 50 ML IVPB ONE (14:30)
--- NOTE | 2016-12-12 14:45 | PN ---
DATE: 12/12/2016 SUBJECTIVE: Patient is on BiPAP, looks comfortable, denies pain. T-max this morning 101.8, pulse 6 5, respirations 20, blood pressure 129/57, saturation 99 on 40%. LABORATORY DATA: WBC 10.1, H and H 13 and 41.6, platelets 205, neutrophils 91.8. Urinalysis reveal ed negative nitrite, leukocyte esterase. MICROBIOLOGY: Blood cultures negative. Influenza swab negative. DIAGNOSTICS: Chest x-ray from admission revealed patchy right upper lobe, right lower lobe and left perihilar infiltrates. INDWELLINGS: The patient has right chest PermCath. ANTIMICROBIALS: 1. Vancomycin. 2. Rocephin. PHYSICAL EXAMINATION: GENERAL: Fragile, elderly man who is awake, in no distress. HEENT: Head atraumatic, normocephalic. Sclerae anicteric. Buccal mucosa dry. NECK: Supple. CHEST: Rise symmetrical. Breath sounds diminished at the bases. HEART: S1, S2. ABDOMEN: Soft, bowel tones present. EXTREMITIES: Without cyanosis. ASSESSMENT: 1. Acute hypoxemic respiratory failure. 2. Pneumonia. 3. End-stage renal disease, hemodialysis dependent. 4. Diabetes. 5. History of West Nile virus encephalitis. PLAN: We are going to change Rocephin to cefepime. Continue vancomycin. Continue steroids. Follo w pulmonary recommendations. Dictated By: GENIA REEVES GAS APPLIANCE MECHANIC for KAYDEN GAVIN/NTS Conf#: [id number] DID#: [id number]
[2016-12-12] MEDS: METHYLPREDNISOLONE 125 MG INJ IV SCH ×2 (15:35→21:41)
[2016-12-12] MEDS: ALBUTEROL/IPRATROPIUM (NEB) 3 ML AMP HHN PRN (15:49)
[2016-12-12] MEDS: TAMSULOSIN (SR) 0.4 MG CAP PO SCH (21:41)
[2016-12-12] MEDS: ATORVASTATIN 20 MG TAB PO SCH (21:41)
[2016-12-12] MEDS: SALMETEROL/FLUTICASONE 100/50 INHA INH SCH (21:41)
[2016-12-12] MEDS: METOPROLOL 25 MG TAB PO SCH (21:42)
[2016-12-12] MEDS: LORAZEPAM 1 MG TAB PO PRN (21:45)
[2016-12-13] VITALS (33 sets, daily range): BP systolic 121–151; BP diastolic 63–81; PULSE 70–88; RESP 17–27
[2016-12-13] MEDS: METHYLPREDNISOLONE 125 MG INJ IV SCH ×3 (05:11→20:23)
[2016-12-13 06:00] LABS: ADD SCAN DIFF NO
[2016-12-13 06:17] LABS: ABNORMAL IP MESSAGE 1; HEMATOCRIT 38.4 % (42.0-52.0); HEMOGLOBIN 12.3 g/dl (14.0-18.0); LYMPHOCYTES # 0.2 10^3/ul (0.8-2.9); LYMPHOCYTES % 6.4 % (15.0-51.0); MEAN CORPUSCULAR HEMOGLOBIN 27.8 pg (29.0-33.0); MEAN CORPUSCULAR VOLUME 86.9 fl (82.0-101.0); MEAN PLATELET VOLUME 10.5 fl (7.4-10.4); MONOCYTES % 1.4 % (0.0-11.0); NEUTROPHIL # 2.6 10^3/ul (1.6-7.5); PLATELET COUNT 189 10^3/UL (140-415); RED BLOOD COUNT 4.42 10^6/ul (4.70-6.10); WHITE BLOOD COUNT 2.8 10^3/ul (4.8-10.8)
[2016-12-13 06:24] LABS: NEUTROPHILS % 91.8 % (39.0-77.0)
[2016-12-13 06:59] LABS: POTASSIUM 4.9 mmol/L (3.5-5.1)
[2016-12-13 07:01] LABS: CREATININE 5.67 mg/dl (0.61-1.24)
[2016-12-13 07:02] LABS: CALCIUM 9.1 mg/dl (8.4-10.2); MAGNESIUM 2.3 mg/dl (1.7-2.5)
[2016-12-13] MEDS: HYDROCORTISONE 5 MG TAB PO SCH (08:59)
[2016-12-13] MEDS: ASPIRIN 81 MG TAB PO SCH (08:59)
[2016-12-13] MEDS: METOPROLOL 25 MG TAB PO SCH ×2 (09:00→20:23)
[2016-12-13] MEDS: FAMOTIDINE 20 MG TAB PO SCH (09:00)
[2016-12-13] MEDS: AMIODARONE 200 MG TAB PO SCH (09:00)
[2016-12-13] MEDS ORDERED: ASPIRIN (EC) 81 MG TAB PO SCH (09:00)
[2016-12-13] MEDS: FUROSEMIDE 40 MG TAB PO SCH (09:00)
[2016-12-13] MEDS: SERTRALINE 50 MG TAB PO SCH (09:01)
[2016-12-13] MEDS: SALMETEROL/FLUTICASONE 100/50 INHA INH SCH ×2 (09:03→20:30)
--- NOTE | 2016-12-13 09:26 | PN ---
DATE: 12/13/2016 SUBJECTIVE: The patient is clinically improving, was in the intensive care unit, off BiPAP. No oth er acute events overnight. No hemoptysis, hematemesis, or hematochezia. OBJECTIVE: VITAL SIGNS: Blood pressure is 132/67, respirations 20, pulse 72, temperature 98.7. I'S AND O'S: Reviewed. HEENT: Head is normocephalic. NECK: Supple. HEART: Regular rate. LUNGS: Show diminished breath sounds at the base. ABDOMEN: Soft, nontender to palpation. No rebound or guarding. EXTREMITIES: Negative for clubbing, cyanosis. No edema. DERMATOLOGIC: No rashes. MUSCULOSKELETAL: No joint effusions. NEUROLOGIC: No change in exam. MEDICATIONS: The patient's medications have been reviewed. LABORATORY DATA: Shows sodium 138, potassium 3.8, chloride 94, BUN 46, creatinine 3.79. White coun t 2.8, hemoglobin is 12.2, hematocrit 38.4, platelet count is 189. ASSESSMENT AND PLAN: 1. End-stage renal disease. The patient is on dialysis Saturday, , Saturday. Anticipate he modialysis today for 3 hours, 3K bath, calcium 2.5. 2. Anemia of end-stage renal disease. Continue to monitor hemoglobin and hematocrit levels. Will give Epogen following dialysis. 3. Mineral bone disorder. Will continue to monitor calcium and phosphorus levels. Continue phosph ate binders. 4. Hypertension, continue current blood pressure regimen. 5. Acute hypoxemic respiratory failure secondary to pneumonia. The patient is weaned off BiPAP. C ontinue antibiotic therapy, continue nasal cannula. 6. Sepsis secondary to healthcare-associated pneumonia. Continue current antibiotic regimen. 7. History of West Nile encephalitis, improving. 8. History of pheochromocytoma. 9. History of prostate cancer. 10. Adrenal insufficiency. The patient remains on Cortef. 11. History of arrhythmia. Continue amiodarone and aspirin. 12. Diabetes. Continue Accu-Cheks, insulin sliding scale. Dictated By: MANDY CERON/NTS Conf#: [id number] DID#: [id number]
--- NOTE | 2016-12-13 09:43 | RADRPT ---
PROCEDURE: XR Chest. CLINICAL INDICATION: Pneumonia TECHNIQUE: Single frontal view of the chest was obtained. COMPARISON: 12/11/2016 FINDINGS: The cardiomediastinal silhouette is mildly enlarged. Pulmonary vasculature is within normal limits. There is patchy right greater than left perihilar increased markings.. There is no definite pleural effusion. There is no pneumothorax. There is right internal jugular c atheter extending to the cavoatrial junction region. There is prominent aortic calcification.. The o sseous structures and soft tissues are unremarkable. IMPRESSION: 1. Continued bilateral perihilar infiltrates, right greater than left. The appearance is slightly improved. 2. Right internal jugular catheter in place. 3. Prominent aortic calcification. Mild cardiomegaly. RPTAT: DD .Fawad Berry MD, Date Time Electronically viewed and signed by .Fawad Berry MD, on 12/13/2016 09:36 .T/
--- NOTE | 2016-12-13 09:49 | PN ---
Date/Time of Note Date/Time of Note DATE: 12/13/16 TIME: 09:46 Assessment/Plan VTE Prophylaxis VTE Prophylaxis Intervention: SCD's Lines/Catheters [facility] Urinary Cath still in place: No Assessment/Plan Chief Complaint/Hosp Course ASSESSMENT AND PLAN: 1. Recurrent community-acquired pneumonia , continue vancomycin and Rocephin. Pulmonology has been consulted. 2. End-stage renal disease on hemodialysis. 3. Essential hypertension well controlled on medical management. 4. Diabetes mellitus. Continue insulin sliding scale we will continue to monitor. 5. Anxiety. Continue lorazepam. 6. Chronic obstructive pulmonary disease. Continue breathing treatment, hydrocortisone. Pulmonology has been consulted. 7. History of arrhythmia. Continue amiodarone, Aspirin. 8. Dyslipidemia. Continue statin. GI and DVT prophylaxis We will continue to monitor patient closely. Further recommendations, management and treatment as per clinical course. Problems: Subjective 24 Hr Interval Summary Free Text/Dictation Patient continues to complain of having cough and congestion No nausea vomiting diarrhea Consuming 50% of his meals Exam/Review of Systems Vital Signs Vitals Vital Signs Date Time Temp Pulse Resp B/P Pulse Ox O2 Delivery O2 Flow Rate FiO2 12/13/16 06:00 72 20 132/69 98 Nasal Cannula 4.0 12/13/16 04:00 98.7 12/12/16 21:13 35 Intake and Output 12/12/16 12/12/16 12/13/16 15:00 23:00 07:00 Intake Total 250 ml 600 ml 480 ml Output Total 100 ml Balance 250 ml 600 ml 380 ml Exam General: The patient is well-developed, Not in acute distress. HEENT: Atraumatic, normocephalic. The pupils are equal and round . Neck: Supple with full range of motion. Chest: Normal expansion of the thorax during inspiration, hemodialysis catheter and right anterior chest wall Lungs: Bilateral lower lung crackles with wheezing Heart: Normal S1-S2, Regular rhythm and rate. Abdomen: Soft , nontender, nondistended , bowel sounds are present. Extremities: Normal to inspection, no edema no cyanosis, AV fistula left upper extremity Neurologic: Normal mental status,The patient is awake, alert and oriented . Results Result Diagram: 12/13/16 0538 12/13/16 0538 Results 24 hrs Laboratory Tests Test 12/12/16 10:40 12/12/16 14:57 12/13/16 05:38 12/13/16 08:09 Urine Amorphous Urates FEW Urine Bilirubin NEGATIVE Urine Clarity CLEAR Urine Color LT. YELLOW Urine Glucose NEGATIVE Urine Hemoglobin NEGATIVE Urine Ketones TRACE Urine Leukocyte Esterase NEGATIVE Urine Microscopic RBC NONE SEEN Urine Microscopic WBC 0-2 Urine Nitrite NEGATIVE Urine Specific [place] 1.025 Urine Total Protein 2+ H Urine Urobilinogen 0.2 E.U./dL Urine pH 5.0 Bedside Glucose 70 113 Anion Gap 27 H Basophils # 0.0 Basophils % 0.0 Blood Urea Nitrogen 74 H Calcium Level 9.1 Carbon Dioxide Level 21 Chloride Level 94 L Creatinine 5.67 H Eosinophils # 0.0 Eosinophils % 0.0 Glucose Level 116 # Hematocrit 38.4 L Hemoglobin 12.3 L Hemoglobin A1c 5.1 Lymphocytes # 0.2 L Lymphocytes % 6.4 L Magnesium Level 2.3 Mean Corpuscular Hemoglobin 27.8 L Mean Corpuscular Hemoglobin Concent 32.0 Mean Corpuscular Volume 86.9 Mean Platelet Volume 10.5 H Monocytes # 0.0 L Monocytes % 1.4 Neutrophils # 2.6 Neutrophils % 91.8 H Nucleated Red Blood Cells # 0.0 Nucleated Red Blood Cells % 0.0 Platelet Count 189 Potassium Level 4.9 Red Blood Count 4.42 L Red Cell Distribution Width 16.0 H Sodium Level 137 White Blood Count 2.8 #L Medications Medications Current Medications Amiodarone HCl (Cordarone) 200 mg DAILY PO Last administered on 12/13/16 09:00 ; Admin Dose 200 MG; Start 12/13/16 at 09:00 Atorvastatin Calcium (Lipitor) 20 mg QHS PO Last administered on 12/12/16 21:41 ; Admin Dose 20 MG; Start 12/12/16 at 21:00 Furosemide (Lasix) 80 mg DAILY PO ; Start 12/13/16 at 09:00 Hydrocortisone (Cortef) 10 mg DAILY PO Last administered on 12/13/16 08:59; Admin Dose 10 MG; Start 12/12/16 at 11:30 Metoprolol Tartrate (Lopressor) 25 mg BID PO Last administered on 12/12/16 21: 42; Admin Dose 25 MG; Start 12/12/16 at 21:00 Sertraline HCl (Zoloft) 25 mg DAILY PO Last administered on 12/13/16 09:01; Admin Dose 25 MG; Start 12/13/16 at 09:00 Tamsulosin HCl (Flomax) 0.4 mg HS PO Last administered on 12/12/16 21:41; Admin Dose 0.4 MG; Start 12/12/16 at 21:00 Salmeterol Xinafoate/ Fluticasone (Advair 100/50 Diskus) 1 inh BID INH Last administered on 12/13/16 09:03; Admin Dose 1 INH; Start 12/12/16 at 21:00 Ondansetron HCl (Zofran Inj) 4 mg Q6H PRN IV NAUSEA AND/OR VOMITING; Start 12/12 at 10:30 Aspirin (Aspirin) 81 mg DAILY PO Last administered on 12/13/16 08:59; Admin Dose 81 MG; Start 12/13/16 at 09:00 Nitroglycerin (Nitroglycerin (Sl Tab) 0.4 Mg) 1 tab Q5M PRN SL CHEST PAIN; Start 12/12/16 at 10:30 Acetaminophen (Tylenol Tab) 650 mg Q6H PRN PO PAIN LEVEL 1-3 OR FEVER; Start at 10:30 Acetaminophen (Tylenol Supp) 650 mg Q6H PRN [place] PAIN LEVEL 1-3 OR FEVER; Start 12/12/16 at 10:30 Morphine Sulfate (morphine) 1 mg Q4H PRN IV PAIN LEVEL 7-10; Start 12/12/16 at 10:30 Docusate Sodium (Colace) 100 mg Q12H PRN PO CONSTIPATION; Start 12/12/16 at 10: 30 Famotidine (Pepcid) 20 mg DAILY PO Last administered on 12/13/16 09:00; Admin Dose 20 MG; Start 12/12/16 at 12:00 Lorazepam (Ativan) 1 mg Q8H PRN PO ANXIETY Last administered on 12/12/16 21:45 ; Admin Dose 1 MG; Start 12/12/16 at 18:30 Methylprednisolone Sodium Succinate (Solu-Medrol) 60 mg Q8 IV Last administered on 12/13/16 05:11; Admin Dose 60 MG; Start 12/12/16 at 14:00; Stop 12/14/16 at 12:00 KATI RANDALL MD Dec 13, 2016 09:49
--- NOTE | 2016-12-13 11:07 | PN ---
DATE: PULMONARY FOLLOWUP NOTE REASON FOR FOLLOWUP: Respiratory failure. SUBJECTIVE: The patient, Mr. Trent is slowly improving. Still has productive cough and moder ate weakness. States he still feels shortness breath on minimal exertion. VITAL SIGNS: Temperature 98, pulse 72, blood pressure 132/69, O2 saturation 96% on 4 L nasal cannul a. NECK: Supple, no JVD or lymphadenopathy. CARDIAC: S1, S2, no added sounds or murmurs. CHEST: Diminished air entry bilaterally. ABDOMEN: Soft, nontender. No guarding or rebound. EXTREMITIES: No cyanosis, clubbing, 1+ edema. NEUROLOGIC: Generalized weakness. LABORATORY DATA: White count 2.8, hemoglobin 12.3, platelets of 189, BUN 74, creatinine 5.67. INR w as 1.15. IMAGING: Chest x-ray was reviewed, shows patchy right lower lobe infiltrate. IMPRESSION AND PLAN: 1. Right lower lobe pneumonia with hypoxemic respiratory failure. 2. History of tracheostomy, now decannulation. 3. End-stage renal failure on hemodialysis. 4. History of West Nile encephalitis. 5. Underlying history of chronic obstructive pulmonary disease. PLAN: 1. Continue broad-spectrum antibiotic coverage. 2. Pulmonary toilet. 3. Incentive spirometry. 4. Steroids. 5. Deep vein thrombosis and GI prophylaxis. Dictated By: IKER PARKER/HEDY Conf#: [id number] DID#: [id number]
[2016-12-13] MEDS: CEFEPIME 1GM/50 ML (PMX) 50 ML IVPB SCH (15:39)
--- NOTE | 2016-12-13 15:53 | PN ---
DATE: 12/13/2016 SUBJECTIVE: No events overnight. The patient is alert, off BiPAP, currently in hemodialysis. No f zackary since this morning. The latest high fever was 101.8 at 2 a.m. yesterday. VITAL SIGNS: Temperature 97.8, pulse 79, respirations 20, blood pressure 132/69, saturation 98 on 4 liters nasal cannula. LABORATORIES: WBC , H and H 12.3 and 38.4, platelets 189, neutrophils 91.8. INDWELLINGS: Right chest PermCath. MICROBIOLOGY: Blood cultures have been negative. Influenza swab negative. Urine culture growing e nterococcus species. DIAGNOSTICS: Chest x-ray this morning revealed bilateral perihilar infiltrates, right greater than left, appearance is slightly improved. ANTIMICROBIALS: 1. Vancomycin. 2. Cefepime. PHYSICAL EXAMINATION: GENERAL: This is a well-developed elderly man who is alert, in no distress. HEENT: Head atraumatic, normocephalic. Sclerae anicteric. Buccal mucosa dry. NECK: Supple, trachea midline. CHEST: Rise symmetrical. Breath sounds with scattered crackles. HEART: S1, S2. ABDOMEN: Soft. Bowel tones present. EXTREMITIES: Without cyanosis. ASSESSMENT: 1. Sepsis. 2. Acute respiratory failure. 3. Pneumonia. 4. End-stage renal disease, on hemodialysis. 5. Diabetes. 6. History of West Nile virus encephalitis. PLAN: The patient remains stable, overall improving. Continue present care, antibiotics, steroid t aper, aggressive pulmonary toilet. Follow final cultures. Dictated By: GENIA REEVES VIDEO CONFERENCE SPECIALIST for KAYDEN GAVIN/HEDY Conf#: [id number] DID#: [id number]
--- NOTE | 2016-12-13 17:18 | RADRPT ---
PROCEDURE: US left upper extremity arterial system. CLINICAL INDICATION: Left upper extremity pain and swelling. Left upper extremity dialysis fistula . TECHNIQUE: Multiple longitudinal and transverse images of the left upper extremity arterial system and left upper extremity dialysis fistula was obtained with beatty scale pulsed Doppler, and color Do ppler imaging. COMPARISON: None available FINDINGS: The left brachial artery is patent. There is a dialysis fistula with the patent outflow vein. The left subclavian vein demonstrates normal flow and compressibility. The left radial artery and u lnar artery are patent with normal triphasic flow. The flow volumes are as follows: Left brachial artery 1788 ml/minute. Left brachial artery at the anastomoses 1260 ml/minute Dialysis fistula outflow vein at the anastomoses 612 ml/minute. Dialysis fistula cephalad to the an astomoses 2838 ml/minute. IMPRESSION: 1. Patent left arm dialysis fistula with flow as described above. RPTAT: QQ .Rodriguez Geller MD, MD Date Time Electronically viewed and signed by .Rodriguez Geller MD, on 12/13/2016 17:17 .R/
[2016-12-13] MEDS: TAMSULOSIN (SR) 0.4 MG CAP PO SCH (20:22)
[2016-12-13] MEDS: ATORVASTATIN 20 MG TAB PO SCH (20:22)
[2016-12-13] MEDS: LORAZEPAM 1 MG TAB PO PRN (20:25)
[2016-12-13] MEDS: ALBUTEROL/IPRATROPIUM (NEB) 3 ML AMP HHN PRN (22:12)
[2016-12-14] VITALS (14 sets, daily range): BP systolic 130–151; BP diastolic 62–70; PULSE 70–78; RESP 18–20
[2016-12-14] MEDS: METHYLPREDNISOLONE 125 MG INJ IV SCH (05:29)
[2016-12-14 06:54] LABS: ADD SCAN DIFF NO
[2016-12-14 07:00] LABS: ABNORMAL IP MESSAGE 1; HEMOGLOBIN 12.3 g/dl (14.0-18.0); LYMPHOCYTES # 0.2 10^3/ul (0.8-2.9); LYMPHOCYTES % 4.3 % (15.0-51.0); MEAN CORPUSCULAR HGB CONC 32.4 g/dl (32.0-37.0); MEAN CORPUSCULAR VOLUME 86.4 fl (82.0-101.0); MEAN PLATELET VOLUME 10.8 fl (7.4-10.4); MONOCYTE # 0.1 10^3/ul (0.3-0.9); MONOCYTES % 2.5 % (0.0-11.0); NEUTROPHIL # 4.8 10^3/ul (1.6-7.5); PLATELET COUNT 215 10^3/UL (140-415); RED CELL DISTRIBUTION WIDTH 15.9 % (11.5-14.5); WHITE BLOOD COUNT 5.2 10^3/ul (4.8-10.8)
[2016-12-14 07:17] LABS: CREATININE 4.24 mg/dl (0.61-1.24); PHOSPHORUS 5.6 mg/dl (2.5-4.9)
[2016-12-14 07:18] LABS: CALCIUM 8.9 mg/dl (8.4-10.2); MAGNESIUM 2.3 mg/dl (1.7-2.5)
[2016-12-14] MEDS: SALMETEROL/FLUTICASONE 100/50 INHA INH SCH ×2 (08:31→20:13)
[2016-12-14] MEDS: ASPIRIN 81 MG TAB PO SCH (08:32)
[2016-12-14] MEDS: SERTRALINE 50 MG TAB PO SCH (08:32)
[2016-12-14] MEDS: AMIODARONE 200 MG TAB PO SCH (08:33)
[2016-12-14] MEDS: METOPROLOL 25 MG TAB PO SCH ×2 (08:33→20:12)
[2016-12-14] MEDS: FAMOTIDINE 20 MG TAB PO SCH (08:34)
[2016-12-14] MEDS: HYDROCORTISONE 5 MG TAB PO SCH (08:37)
[2016-12-14] MEDS: FUROSEMIDE 40 MG TAB PO SCH (08:37)
--- NOTE | 2016-12-14 08:41 | PN ---
DATE: 12/14/2016 SUBJECTIVE: The patient had hemodialysis yesterday and tolerated it well. He was transferred from the intensive care unit to telemetry. No acute events overnight. No hemoptysis, hematemesis or hem atochezia. OBJECTIVE: VITAL SIGNS: Blood pressure is 146/67, respirations 16, pulse 78, temperature 98.1. HEENT: Head is normocephalic. NECK: Supple. HEART: Regular rate. LUNGS: Showed diminished breath sounds at the base. ABDOMEN: Soft, nontender to palpation. No rebound or guarding. EXTREMITIES: Negative for clubbing or cyanosis. No edema. DERMATOLOGIC: No rashes. MUSCULOSKELETAL: The patient's left AV fistula has a good thrill and bruit. NEUROLOGIC: No focal deficits. DERMATOLOGIC: No rashes. LABORATORY DATA: Shows sodium 134, potassium 4.0, chloride 93, BUN 6, creatinine 4.24, phosphorus 5 .6, white count 5.2, hemoglobin 10.3, hematocrit 38.0, platelet count is 215. The patient may AV fistula shows flow of approximately 612 mL per minute. ASSESSMENT AND PLAN: 1. End-stage renal disease. The patient is on dialysis Saturday, and Saturday. Anticipate hemodialysis tomorrow for 3 hours on a 3K bath, calcium 2.5. 2. Access. The patient has a left AV fistula. Arterial ultrasound shows good flow, no stenosis. Will continue to monitor. 3. Anemia of end-stage renal disease. Continue to monitor H and H levels. Continue Epogen with di alysis. 4. Mineral bone disorder. Monitor calcium and phosphorus levels. Continue phosphate binders. 5. Hypertension. Continue the current blood pressure regimen. 6. Sepsis secondary to healthcare-associated pneumonia. The patient is clinically improving. Cont inue the current antibiotic regimen. 7. Acute hypoxemic respiratory failure secondary to pneumonia. Clinically improving. Continue sup plemental oxygen. 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 9. Adrenal insufficiency. Continue Cortef. 10. History of arrhythmias. Continue amiodarone and aspirin. 11. Diabetes. Continue Accu-Cheks and insulin sliding scale. Dictated By: MANDY CERON/HEDY Conf#: [id number] DID#: [id number]
[2016-12-14] MEDS: CEFEPIME 1GM/50 ML (PMX) 50 ML IVPB SCH (10:29)
--- NOTE | 2016-12-14 12:25 | CONS ---
Date/Time of Note Date/Time of Note DATE: 12/14/16 TIME: 12:22 Assessment/Plan Assessment/Plan Additional Assessment/Plan Assessment recommendations; 1. Patient admitted with bilateral pneumonia with marked clinical improvement. 2. End-stage renal disease on hemodialysis. 3. History of West Nile virus infection. In 2016 4. COPD. 5. Diabetes. 5. History of pheochromocytoma. Continue current treatment. Consultation Date/Type/Reason Admit Date/Time Dec 12, 2016 at 14:52 Initial Consult Date 12/11/16 Type of Consultation: Pulmonary/critical care 24 HR Interval Summary Free Text/Dictation Patient condition is markedly improved. Had been transferred out of ICU to telemetry unit. Patient come to the very mild chest congestion but denies any shortness of breath chest pain fever chills. General exam; elderly male, currently in no distress, awake and alert. Exam/Review of Systems Vital Signs Vitals Vital Signs Date Time Temp Pulse Resp B/P Pulse Ox O2 Delivery O2 Flow Rate FiO2 12/14/16 11:17 98.1 72 18 146/67 97 12/14/16 08:10 Nasal Cannula 3.0 12/12/16 21:13 35 Intake and Output 12/13/16 12/13/16 12/14/16 15:00 23:00 07:00 Intake Total 1220 ml 250 ml 240 ml Output Total 2500 ml Balance -1280 ml 250 ml 240 ml Exam HEENT exam; supple neck, no JVD. No lymphadenopathy. Midline trachea. No thyromegaly. Patient is edentulous and wears dentures Chest examination ID: Diminished but clear breath sounds bilaterally. S1-S2 audible, no murmurs. Regular rhythm. Abdomen examination; soft, nondistended. Bowel sounds audible. No organomegaly. Extremity exam is; no peripheral edema. [employer] examination; Results Result Diagram: 12/14/16 0610 12/14/16 0610 Results 24 hrs Laboratory Tests Test 12/13/16 12:42 12/13/16 17:10 12/14/16 06:10 Bedside Glucose 153 162 Anion Gap 24 H Basophils # 0.0 Basophils % 0.0 Blood Urea Nitrogen 61 H Calcium Level 8.9 Carbon Dioxide Level 21 Chloride Level 93 L Creatinine 4.24 #H Eosinophils # 0.0 Eosinophils % 0.0 Glucose Level 145 Hematocrit 38.0 L Hemoglobin 12.3 L Lymphocytes # 0.2 L Lymphocytes % 4.3 L Magnesium Level 2.3 Mean Corpuscular Hemoglobin 28.0 L Mean Corpuscular Hemoglobin Concent 32.4 Mean Corpuscular Volume 86.4 Mean Platelet Volume 10.8 H Monocytes # 0.1 L Monocytes % 2.5 Neutrophils # 4.8 Neutrophils % 93.0 H Nucleated Red Blood Cells # 0.0 Nucleated Red Blood Cells % 0.0 Phosphorus Level 5.6 H Platelet Count 215 Potassium Level 4.0 Red Blood Count 4.40 L Red Cell Distribution Width 15.9 H Sodium Level 134 L White Blood Count 5.2 # Medications Medications Current Medications Amiodarone HCl (Cordarone) 200 mg DAILY PO Last administered on 12/14/16 08:33 ; Admin Dose 200 MG; Start 12/13/16 at 09:00 Atorvastatin Calcium (Lipitor) 20 mg QHS PO Last administered on 12/13/16 20:22 ; Admin Dose 20 MG; Start 12/12/16 at 21:00 Furosemide (Lasix) 80 mg DAILY PO Last administered on 12/14/16 08:37; Admin Dose 80 MG; Start 12/13/16 at 09:00 Hydrocortisone (Cortef) 10 mg DAILY PO Last administered on 12/14/16 08:37; Admin Dose 10 MG; Start 12/12/16 at 11:30 Metoprolol Tartrate (Lopressor) 25 mg BID PO Last administered on 12/14/16 08: 33; Admin Dose 25 MG; Start 12/12/16 at 21:00 Sertraline HCl (Zoloft) 25 mg DAILY PO Last administered on 12/14/16 08:32; Admin Dose 25 MG; Start 12/13/16 at 09:00 Tamsulosin HCl (Flomax) 0.4 mg HS PO Last administered on 12/13/16 20:22; Admin Dose 0.4 MG; Start 12/12/16 at 21:00 Salmeterol Xinafoate/ Fluticasone (Advair 100/50 Diskus) 1 inh BID INH Last administered on 12/14/16 08:31; Admin Dose 1 INH; Start 12/12/16 at 21:00 Ondansetron HCl (Zofran Inj) 4 mg Q6H PRN IV NAUSEA AND/OR VOMITING; Start 12/12 at 10:30 Aspirin (Aspirin) 81 mg DAILY PO Last administered on 12/14/16 08:32; Admin Dose 81 MG; Start 12/13/16 at 09:00 Nitroglycerin (Nitroglycerin (Sl Tab) 0.4 Mg) 1 tab Q5M PRN SL CHEST PAIN; Start 12/12/16 at 10:30 Acetaminophen (Tylenol Tab) 650 mg Q6H PRN PO PAIN LEVEL 1-3 OR FEVER; Start at 10:30 Acetaminophen (Tylenol Supp) 650 mg Q6H PRN ID PAIN LEVEL 1-3 OR FEVER; Start 12/12/16 at 10:30 Morphine Sulfate (morphine) 1 mg Q4H PRN IV PAIN LEVEL 7-10; Start 12/12/16 at 10:30 Docusate Sodium (Colace) 100 mg Q12H PRN PO CONSTIPATION; Start 12/12/16 at 10: 30 Famotidine (Pepcid) 20 mg DAILY PO Last administered on 12/14/16 08:34; Admin Dose 20 MG; Start 12/12/16 at 12:00 Lorazepam 1 mg 1 mg Q8H PRN PO ANXIETY Last administered on 12/13/16 20:25; Admin Dose 1 MG; Start 12/12/16 at 18:30 Cefepime HCl (Maxipime 1gm/50 ml (Pmx)) 50 ml @ 100 mls/hr DAILY IVPB Last administered on 12/14/16 10:29; Admin Dose 100 MLS/HR; Start 12/13/16 at 12:30 Miscellaneous Information (*Rx Drug Level Order Reminder*) 1 ONCE ONCE XX ; Start 12/15/16 at 05:00; Stop 12/15/16 at 05:01 MADONNA MORALES Dec 14, 2016 12:25
--- NOTE | 2016-12-14 12:52 | CONS ---
Date/Time of Note Date/Time of Note DATE: 12/14/16 TIME: 12:50 Assessment/Plan Assessment/Plan Chief Complaint/Hosp Course SUBJECTIVE: No events overnight. The patient is alert, comfortable on nc, no fevers .8. INDWELLINGS: Right chest PermCath. MICROBIOLOGY: Blood cultures have been negative. Influenza swab negative. Urine culture growing VRE. DIAGNOSTICS: Chest x-ray this morning revealed bilateral perihilar infiltrates , right greater than left, appearance is slightly improved. ANTIMICROBIALS: 1. Vancomycin. 2. Cefepime. PHYSICAL EXAMINATION: GENERAL: This is a well-developed elderly man who is alert, in no distress. HEENT: Head atraumatic, normocephalic. Sclerae anicteric. Buccal mucosa dry. NECK: Supple, trachea midline. CHEST: Rise symmetrical. Breath sounds with scattered crackles. HEART: S1, S2. ABDOMEN: Soft. Bowel tones present. EXTREMITIES: Without cyanosis. ASSESSMENT: 1. Sepsis. 2. Acute respiratory failure. 3. Pneumonia. 4. End-stage renal disease, on hemodialysis. 5. Diabetes. 6. History of West Nile virus encephalitis. PLAN: Improving. Will give Fosfomycin dose. Continue present care, antibiotics, steroid taper, f/u pulmonary rec-s [facility] staff Problems: Consultation Date/Type/Reason Admit Date/Time Dec 12, 2016 at 14:52 Initial Consult Date 12/11/16 Type of Consultation: ID Exam/Review of Systems Vital Signs Vitals Vital Signs Date Time Temp Pulse Resp B/P Pulse Ox O2 Delivery O2 Flow Rate FiO2 12/14/16 11:17 98.1 72 18 146/67 97 12/14/16 08:10 Nasal Cannula 3.0 12/12/16 21:13 35 Intake and Output 12/13/16 12/13/16 12/14/16 15:00 23:00 07:00 Intake Total 1220 ml 250 ml 240 ml Output Total 2500 ml Balance -1280 ml 250 ml 240 ml Results Result Diagram: 12/14/16 0610 12/14/16 0610 Results 24 hrs Laboratory Tests Test 12/13/16 17:10 12/14/16 06:10 Bedside Glucose 162 Anion Gap 24 H Basophils # 0.0 Basophils % 0.0 Blood Urea Nitrogen 61 H Calcium Level 8.9 Carbon Dioxide Level 21 Chloride Level 93 L Creatinine 4.24 #H Eosinophils # 0.0 Eosinophils % 0.0 Glucose Level 145 Hematocrit 38.0 L Hemoglobin 12.3 L Lymphocytes # 0.2 L Lymphocytes % 4.3 L Magnesium Level 2.3 Mean Corpuscular Hemoglobin 28.0 L Mean Corpuscular Hemoglobin Concent 32.4 Mean Corpuscular Volume 86.4 Mean Platelet Volume 10.8 H Monocytes # 0.1 L Monocytes % 2.5 Neutrophils # 4.8 Neutrophils % 93.0 H Nucleated Red Blood Cells # 0.0 Nucleated Red Blood Cells % 0.0 Phosphorus Level 5.6 H Platelet Count 215 Potassium Level 4.0 Red Blood Count 4.40 L Red Cell Distribution Width 15.9 H Sodium Level 134 L White Blood Count 5.2 # Medications Medications Current Medications Amiodarone HCl (Cordarone) 200 mg DAILY PO Last administered on 12/14/16 08:33 ; Admin Dose 200 MG; Start 12/13/16 at 09:00 Atorvastatin Calcium (Lipitor) 20 mg QHS PO Last administered on 12/13/16 20:22 ; Admin Dose 20 MG; Start 12/12/16 at 21:00 Furosemide (Lasix) 80 mg DAILY PO Last administered on 12/14/16 08:37; Admin Dose 80 MG; Start 12/13/16 at 09:00 Hydrocortisone (Cortef) 10 mg DAILY PO Last administered on 12/14/16 08:37; Admin Dose 10 MG; Start 12/12/16 at 11:30 Metoprolol Tartrate (Lopressor) 25 mg BID PO Last administered on 12/14/16 08: 33; Admin Dose 25 MG; Start 12/12/16 at 21:00 Sertraline HCl (Zoloft) 25 mg DAILY PO Last administered on 12/14/16 08:32; Admin Dose 25 MG; Start 12/13/16 at 09:00 Tamsulosin HCl (Flomax) 0.4 mg HS PO Last administered on 12/13/16 20:22; Admin Dose 0.4 MG; Start 12/12/16 at 21:00 Salmeterol Xinafoate/ Fluticasone (Advair 100/50 Diskus) 1 inh BID INH Last administered on 12/14/16 08:31; Admin Dose 1 INH; Start 12/12/16 at 21:00 Ondansetron HCl (Zofran Inj) 4 mg Q6H PRN IV NAUSEA AND/OR VOMITING; Start 12/12 at 10:30 Aspirin (Aspirin) 81 mg DAILY PO Last administered on 12/14/16 08:32; Admin Dose 81 MG; Start 12/13/16 at 09:00 Nitroglycerin (Nitroglycerin (Sl Tab) 0.4 Mg) 1 tab Q5M PRN SL CHEST PAIN; Start 12/12/16 at 10:30 Acetaminophen (Tylenol Tab) 650 mg Q6H PRN PO PAIN LEVEL 1-3 OR FEVER; Start at 10:30 Acetaminophen (Tylenol Supp) 650 mg Q6H PRN [place] PAIN LEVEL 1-3 OR FEVER; Start 12/12/16 at 10:30 Morphine Sulfate (morphine) 1 mg Q4H PRN IV PAIN LEVEL 7-10; Start 12/12/16 at 10:30 Docusate Sodium (Colace) 100 mg Q12H PRN PO CONSTIPATION; Start 12/12/16 at 10: 30 Famotidine (Pepcid) 20 mg DAILY PO Last administered on 12/14/16 08:34; Admin Dose 20 MG; Start 12/12/16 at 12:00 Lorazepam 1 mg 1 mg Q8H PRN PO ANXIETY Last administered on 12/13/16 20:25; Admin Dose 1 MG; Start 12/12/16 at 18:30 Cefepime HCl (Maxipime 1gm/50 ml (Pmx)) 50 ml @ 100 mls/hr DAILY IVPB Last administered on 12/14/16 10:29; Admin Dose 100 MLS/HR; Start 12/13/16 at 12:30 Miscellaneous Information (*Rx Drug Level Order Reminder*) 1 ONCE ONCE XX ; Start 12/15/16 at 05:00; Stop 12/15/16 at 05:01 GENIA REEVES NP Dec 14, 2016 12:51
--- NOTE | 2016-12-14 13:16 | RADRPT ---
PROCEDURE: Chest Radiograph. CLINICAL INDICATION: Pneumonia. CHF. TECHNIQUE: Single frontal chest radiograph. COMPARISON: Chest radiograph 12/13/2016 FINDINGS: A right chest wall tunneled hemodialysis catheter remains in place. The heart remains mildly enlarg ed. There is mild central vascular congestion which appears improved. Interstitial opacities are m ildly improved suggestive of pulmonary edema. Atherosclerotic calcifications are present. The bon es are intact. IMPRESSION: 1. Mild cardiomegaly and central vascular congestion, mildly improved. 2. Improving patchy bilateral interstitial opacities are suggestive of pulmonary edema, though mult ifocal infiltrates can have this appearance. 3. Atherosclerotic vascular disease RPTAT: AA .Farhan Ortega MD, Date Time Electronically viewed and signed by .Farhan Ortega MD, MD on 12/14/2016 13:15 .B/
--- NOTE | 2016-12-14 13:45 | PN ---
Date/Time of Note Date/Time of Note DATE: 12/14/16 TIME: 13:37 Assessment/Plan VTE Prophylaxis VTE Prophylaxis Intervention: SCD's Lines/Catheters IV Catheter Type (from [facility]): PERM CATH Urinary Cath still in place: No Assessment/Plan Chief Complaint/Hosp Course ASSESSMENT AND PLAN: 1. Recurrent community-acquired pneumonia , continue cefepime. Pulmonology has been consulted. 2. End-stage renal disease on hemodialysis. 3. Essential hypertension well controlled on medical management. 4. Diabetes mellitus. Continue insulin sliding scale we will continue to monitor. 5. Anxiety. Continue lorazepam. 6. Chronic obstructive pulmonary disease. Continue breathing treatment, steroid, pulmonology has been consulted. 7. History of arrhythmia. Continue amiodarone, Aspirin. 8. Dyslipidemia. Continue statin. 9. Major depression. Continue Zoloft GI and DVT prophylaxis We will continue to monitor patient closely. Further recommendations, management and treatment as per clinical course. Problems: Subjective 24 Hr Interval Summary Free Text/Dictation Patient denies of any chest pain or shortness of breath Tolerating oral intake Positive for cough and congestion Exam/Review of Systems Vital Signs Vitals Vital Signs Date Time Temp Pulse Resp B/P Pulse Ox O2 Delivery O2 Flow Rate FiO2 12/14/16 12:16 78 12/14/16 11:17 98.1 18 146/67 97 12/14/16 08:10 Nasal Cannula 3.0 12/12/16 21:13 35 Intake and Output 12/13/16 12/13/16 12/14/16 15:00 23:00 07:00 Intake Total 1220 ml 250 ml 240 ml Output Total 2500 ml Balance -1280 ml 250 ml 240 ml Exam General: The patient is well-developed, Not in acute distress. HEENT: Atraumatic, normocephalic. The pupils are equal and round . Neck: Supple with full range of motion. Chest: Normal expansion of the thorax during inspiration Lungs: Decreased breath sounds bilateral lower lung field Heart: Normal S1-S2, Regular rhythm and rate. Abdomen: Soft , nontender, nondistended , bowel sounds are present. Extremities: Normal to inspection, no edema no cyanosis Neurologic: Normal mental status,The patient is awake, alert and oriented . Results Result Diagram: 12/14/16 0610 12/14/16 0610 Results 24 hrs Laboratory Tests Test 12/13/16 17:10 12/14/16 06:10 Bedside Glucose 162 Anion Gap 24 H Basophils # 0.0 Basophils % 0.0 Blood Urea Nitrogen 61 H Calcium Level 8.9 Carbon Dioxide Level 21 Chloride Level 93 L Creatinine 4.24 #H Eosinophils # 0.0 Eosinophils % 0.0 Glucose Level 145 Hematocrit 38.0 L Hemoglobin 12.3 L Lymphocytes # 0.2 L Lymphocytes % 4.3 L Magnesium Level 2.3 Mean Corpuscular Hemoglobin 28.0 L Mean Corpuscular Hemoglobin Concent 32.4 Mean Corpuscular Volume 86.4 Mean Platelet Volume 10.8 H Monocytes # 0.1 L Monocytes % 2.5 Neutrophils # 4.8 Neutrophils % 93.0 H Nucleated Red Blood Cells # 0.0 Nucleated Red Blood Cells % 0.0 Phosphorus Level 5.6 H Platelet Count 215 Potassium Level 4.0 Red Blood Count 4.40 L Red Cell Distribution Width 15.9 H Sodium Level 134 L White Blood Count 5.2 # Medications Medications Current Medications Amiodarone HCl (Cordarone) 200 mg DAILY PO Last administered on 12/14/16 08:33 ; Admin Dose 200 MG; Start 12/13/16 at 09:00 Atorvastatin Calcium (Lipitor) 20 mg QHS PO Last administered on 12/13/16 20:22 ; Admin Dose 20 MG; Start 12/12/16 at 21:00 Furosemide (Lasix) 80 mg DAILY PO Last administered on 12/14/16 08:37; Admin Dose 80 MG; Start 12/13/16 at 09:00 Hydrocortisone (Cortef) 10 mg DAILY PO Last administered on 12/14/16 08:37; Admin Dose 10 MG; Start 12/12/16 at 11:30 Metoprolol Tartrate (Lopressor) 25 mg BID PO Last administered on 12/14/16 08: 33; Admin Dose 25 MG; Start 12/12/16 at 21:00 Sertraline HCl (Zoloft) 25 mg DAILY PO Last administered on 12/14/16 08:32; Admin Dose 25 MG; Start 12/13/16 at 09:00 Tamsulosin HCl (Flomax) 0.4 mg HS PO Last administered on 12/13/16 20:22; Admin Dose 0.4 MG; Start 12/12/16 at 21:00 Salmeterol Xinafoate/ Fluticasone (Advair 100/50 Diskus) 1 inh BID INH Last administered on 12/14/16 08:31; Admin Dose 1 INH; Start 12/12/16 at 21:00 Ondansetron HCl (Zofran Inj) 4 mg Q6H PRN IV NAUSEA AND/OR VOMITING; Start 12/12 at 10:30 Aspirin (Aspirin) 81 mg DAILY PO Last administered on 12/14/16 08:32; Admin Dose 81 MG; Start 12/13/16 at 09:00 Nitroglycerin (Nitroglycerin (Sl Tab) 0.4 Mg) 1 tab Q5M PRN SL CHEST PAIN; Start 12/12/16 at 10:30 Acetaminophen (Tylenol Tab) 650 mg Q6H PRN PO PAIN LEVEL 1-3 OR FEVER; Start at 10:30 Acetaminophen (Tylenol Supp) 650 mg Q6H PRN [place] PAIN LEVEL 1-3 OR FEVER; Start 12/12/16 at 10:30 Morphine Sulfate (morphine) 1 mg Q4H PRN IV PAIN LEVEL 7-10; Start 12/12/16 at 10:30 Docusate Sodium (Colace) 100 mg Q12H PRN PO CONSTIPATION; Start 12/12/16 at 10: 30 Famotidine (Pepcid) 20 mg DAILY PO Last administered on 12/14/16 08:34; Admin Dose 20 MG; Start 12/12/16 at 12:00 Lorazepam 1 mg 1 mg Q8H PRN PO ANXIETY Last administered on 12/13/16 20:25; Admin Dose 1 MG; Start 12/12/16 at 18:30 Cefepime HCl (Maxipime 1gm/50 ml (Pmx)) 50 ml @ 100 mls/hr DAILY IVPB Last administered on 12/14/16 10:29; Admin Dose 100 MLS/HR; Start 12/13/16 at 12:30 Miscellaneous Information (*Rx Drug Level Order Reminder*) 1 ONCE ONCE XX ; Start 12/15/16 at 05:00; Stop 12/15/16 at 05:01 Fosfomycin Tromethamine (Monurol) 3 gm ONCE ONCE PO ; Start 12/14/16 at 14:00; Stop 12/14/16 at 14:01 KATI ARNDALL MD Dec 14, 2016 13:45
[2016-12-14] MEDS ORDERED: FOSFOMYCIN 3 GM PACKET PO ONE (14:00)
[2016-12-14] MEDS: GUAIFENESIN/CODEINE 5ML CUP PO PRN (15:08)
[2016-12-14] MEDS: ATORVASTATIN 20 MG TAB PO SCH (20:12)
[2016-12-14] MEDS: TAMSULOSIN (SR) 0.4 MG CAP PO SCH (20:12)
[2016-12-14] MEDS: LORAZEPAM 1 MG TAB PO PRN (21:12)
[2016-12-15] VITALS (18 sets, daily range): BP systolic 121–151; BP diastolic 61–74; PULSE 63–78; RESP 18–20
[2016-12-15 05:58] LABS: ADD SCAN DIFF NO
[2016-12-15 06:15] LABS: CREATININE 5.77 mg/dl (0.61-1.24)
[2016-12-15 06:16] LABS: CALCIUM 8.6 mg/dl (8.4-10.2)
[2016-12-15 06:17] LABS: ABNORMAL IP MESSAGE 1; HEMATOCRIT 36.6 % (42.0-52.0); HEMOGLOBIN 11.8 g/dl (14.0-18.0); LYMPHOCYTES # 0.3 10^3/ul (0.8-2.9); LYMPHOCYTES % 3.8 % (15.0-51.0); MEAN CORPUSCULAR HEMOGLOBIN 27.8 pg (29.0-33.0); MEAN CORPUSCULAR HGB CONC 32.2 g/dl (32.0-37.0); MEAN CORPUSCULAR VOLUME 86.1 fl (82.0-101.0); MEAN PLATELET VOLUME 10.7 fl (7.4-10.4); MONOCYTE # 0.4 10^3/ul (0.3-0.9); NEUTROPHIL # 8.2 10^3/ul (1.6-7.5); NEUTROPHILS % 91.4 % (39.0-77.0); PLATELET COUNT 222 10^3/UL (140-415); RED BLOOD COUNT 4.25 10^6/ul (4.70-6.10); RED CELL DISTRIBUTION WIDTH 15.8 % (11.5-14.5)
--- NOTE | 2016-12-15 08:04 | PN ---
DATE: 12/15/2016 SUBJECTIVE: The patient is stable, no acute events overnight. No . OBJECTIVE: VITAL SIGNS: Blood pressure 132/72, respirations 20, pulse 67, temperature 98.0. HEENT: Head is normocephalic. NECK: Supple. HEART: Regular rate. LUNGS: Show diminished breath sounds at the base. ABDOMEN: Soft, nontender to palpation. No rebound or guarding. EXTREMITIES: Negative for clubbing, cyanosis, no edema. DERMATOLOGIC: No rashes. MUSCULOSKELETAL: No joint effusions. NEUROLOGIC: No change in exam. MEDICATIONS: The patient's medications have been reviewed. LABORATORY DATA: Shows sodium 132, potassium 4.0, chloride 93, BUN 97, creatinine 5.77, white count 9.0, hemoglobin 11.8, hematocrit 36.6, and platelet count is 222. ASSESSMENT AND PLAN: 1. End-stage renal disease. The patient is on dialysis Saturday, , Saturday. To have dialy sis today for 3 hours, 2K bath, calcium 2.5. 2. No accessory access. The patient has patent arteriovenous fistula. Will use with hemodialysis. 3. Anemia of end-stage renal disease. Continue to monitor hemoglobin and hematocrit levels. Andrzej nue Epogen with dialysis. 4. Hypertension. Continue current blood pressure regimen. 5. Sepsis secondary to pneumonia. Continue current antibiotic regimen. The patient is clinically improving. 6. Acute hypoxemic respiratory failure secondary to pneumonia. Continue supplemental oxygen. 7. History of West Nile encephalitis. 8. Status is adrenal insufficiency. Continue Cortef. 9. History of arrhythmia. Continue amiodarone and aspirin. 10. Diabetes. Continue Accu-Cheks, insulin sliding scale. Dictated By: MANDY CERON/NTS Conf#: [id number] DID#: [id number]
--- NOTE | 2016-12-15 09:25 | CONS ---
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 Sepsis on admission w/fevers >101.+, leukocytosis, tachycardia * BCx (-) * WBC normalized post ABX - now rising on IVC steroids 2. Acute respiratory distress -> COPD exacerbation (+) recurrent bilateral HCAP * Hx of prior Trach-now decannulated 3. Pneumonia w/pulmonary edema * CXR 12/15/16: Improving patchy bilateral interstitial opacities are suggestive of pulmonary edema, though multifocal infiltrates can have this appearance. 4. End-stage renal disease, on hemodialysis. 5. Diabetes. 6. VRE early UTI w/low colony counts from 12/12/16 -> s/p Fosfomycin x1 12/14 * URINE CULTURE Final Organism 1 VANCO RESISTANT ENTEROCOCCUS COLONY COUNT 10,000 - 20,000 CFU/ml . MULTI DRUG RESISTANT ORGANISM (-)MRSA Nares INVASIVES: PermCath ABX ALLERGY: KNDA CURRENT ABX: TOTAL ABX DAY #3 => Vanco IV + Cefepime + s/p Fosfomycin x1 12/14 ID RECOMMENDATIONS: 1. Patient admitted for bilateral pneumonia with marked clinical and radiological improvement. 2. Continue current ABX 3. Increase mobility, working w/PTx . Problems: Consultation Date/Type/Reason Admit Date/Time Dec 12, 2016 at 14:52 Initial Consult Date 12/11/16 Type of Consultation: ID Exam/Review of Systems Vital Signs Vitals Vital Signs Date Time Temp Pulse Resp B/P Pulse Ox O2 Delivery O2 Flow Rate FiO2 12/15/16 08:21 63 12/15/16 07:47 97.3 20 137/68 97 Nasal Cannula 3.0 12/12/16 21:13 35 Intake and Output 12/14/16 12/14/16 12/15/16 15:00 23:00 07:00 Intake Total 750 ml Output Total 450 ml Balance 300 ml Results Result Diagram: 12/15/16 0515 12/15/16 0515 Results 24 hrs Laboratory Tests Test 12/15/16 05:15 Anion Gap 23 H Basophils # 0.0 Basophils % 0.0 Blood Urea Nitrogen 87 H Calcium Level 8.6 Carbon Dioxide Level 20 L Chloride Level 93 L Creatinine 5.77 H Eosinophils # 0.0 Eosinophils % 0.0 Glucose Level 115 Hematocrit 36.6 L Hemoglobin 11.8 L Lymphocytes # 0.3 L Lymphocytes % 3.8 L Mean Corpuscular Hemoglobin 27.8 L Mean Corpuscular Hemoglobin Concent 32.2 Mean Corpuscular Volume 86.1 Mean Platelet Volume 10.7 H Monocytes # 0.4 Monocytes % 4.0 Neutrophils # 8.2 H Neutrophils % 91.4 H Nucleated Red Blood Cells # 0.0 Nucleated Red Blood Cells % 0.0 Platelet Count 222 Potassium Level 4.0 Random Vancomycin Level 10.6 Red Blood Count 4.25 L Red Cell Distribution Width 15.8 H Sodium Level 132 L White Blood Count 9.0 # Medications Medications Current Medications Amiodarone HCl (Cordarone) 200 mg DAILY PO Last administered on 12/14/16 08:33 ; Admin Dose 200 MG; Start 12/13/16 at 09:00 Atorvastatin Calcium (Lipitor) 20 mg QHS PO Last administered on 12/14/16 20: 12; Admin Dose 20 MG; Start 12/12/16 at 21:00 Furosemide (Lasix) 80 mg DAILY PO Last administered on 12/14/16 08:37; Admin Dose 80 MG; Start 12/13/16 at 09:00 Hydrocortisone (Cortef) 10 mg DAILY PO Last administered on 12/14/16 08:37; Admin Dose 10 MG; Start 12/12/16 at 11:30 Metoprolol Tartrate (Lopressor) 25 mg BID PO Last administered on 12/14/16 20: 12; Admin Dose 25 MG; Start 12/12/16 at 21:00 Sertraline HCl (Zoloft) 25 mg DAILY PO Last administered on 12/14/16 08:32; Admin Dose 25 MG; Start 12/13/16 at 09:00 Tamsulosin HCl (Flomax) 0.4 mg HS PO Last administered on 12/14/16 20:12; Admin Dose 0.4 MG; Start 12/12/16 at 21:00 Salmeterol Xinafoate/ Fluticasone (Advair 100/50 Diskus) 1 inh BID INH Last administered on 12/14/16 20:13; Admin Dose 1 INH; Start 12/12/16 at 21:00 Ondansetron HCl (Zofran Inj) 4 mg Q6H PRN IV NAUSEA AND/OR VOMITING; Start 12/12 at 10:30 Aspirin (Aspirin) 81 mg DAILY PO Last administered on 12/14/16 08:32; Admin Dose 81 MG; Start 12/13/16 at 09:00 Nitroglycerin (Nitroglycerin (Sl Tab) 0.4 Mg) 1 tab Q5M PRN SL CHEST PAIN; Start 12/12/16 at 10:30 Acetaminophen (Tylenol Tab) 650 mg Q6H PRN PO PAIN LEVEL 1-3 OR FEVER; Start at 10:30 Acetaminophen (Tylenol Supp) 650 mg Q6H PRN [place] PAIN LEVEL 1-3 OR FEVER; Start 12/12/16 at 10:30 Morphine Sulfate (morphine) 1 mg Q4H PRN IV PAIN LEVEL 7-10 Last administered on 12/14/16 18:15; Admin Dose 1 MG; Start 12/12/16 at 10:30 Docusate Sodium (Colace) 100 mg Q12H PRN PO CONSTIPATION; Start 12/12/16 at 10: 30 Famotidine (Pepcid) 20 mg DAILY PO Last administered on 12/14/16 08:34; Admin Dose 20 MG; Start 12/12/16 at 12:00 Lorazepam 1 mg 1 mg Q8H PRN PO ANXIETY Last administered on 12/14/16 21:12; Admin Dose 1 MG; Start 12/12/16 at 18:30 Cefepime HCl (Maxipime 1gm/50 ml (Pmx)) 50 ml @ 100 mls/hr DAILY IVPB Last administered on 12/14/16 10:29; Admin Dose 100 MLS/HR; Start 12/13/16 at 12:30 Guaifenesin/ Codeine Phosphate 5 ml 5 ml Q4H PRN PO COUGH Last administered on 12/14/16t 15:08; Admin Dose 5 ML; Start 12/14/16 at 14:00 Vancomycin HCl/ Sodium Chloride (Vancocin/NS) 250 ml @ 83.333 mls/ hr 13 IVPB ; Start 12/15/16 at 13:00; Stop 12/15/16 at 23:00 CLAUDIA OROPEZA NP Dec 15, 2016 09:25
[2016-12-15] MEDS: CEFEPIME 1GM/50 ML (PMX) 50 ML IVPB SCH (09:54)
[2016-12-15] MEDS: SALMETEROL/FLUTICASONE 100/50 INHA INH SCH ×2 (09:54→22:08)
[2016-12-15] MEDS: FUROSEMIDE 40 MG TAB PO SCH (09:54)
[2016-12-15] MEDS: ASPIRIN 81 MG TAB PO SCH (09:54)
[2016-12-15] MEDS: FAMOTIDINE 20 MG TAB PO SCH (09:55)
[2016-12-15] MEDS: SERTRALINE 50 MG TAB PO SCH (09:55)
[2016-12-15] MEDS: AMIODARONE 200 MG TAB PO SCH (09:55)
[2016-12-15] MEDS: METOPROLOL 25 MG TAB PO SCH ×2 (09:55→22:10)
[2016-12-15] MEDS: HYDROCORTISONE 5 MG TAB PO SCH (09:56)
--- NOTE | 2016-12-15 11:40 | PN ---
Date/Time of Note Date/Time of Note DATE: 12/15/16 TIME: 11:39 Assessment/Plan VTE Prophylaxis VTE Prophylaxis Intervention: SCD's Lines/Catheters [facility] PERM CATH. Urinary Cath still in place: No Assessment/Plan Chief Complaint/Hosp Course ASSESSMENT AND PLAN: 1. Recurrent community-acquired pneumonia , continue cefepime. Pulmonology has been consulted. 2. End-stage renal disease on hemodialysis. 3. Essential hypertension well controlled on medical management. 4. Diabetes mellitus. Continue insulin sliding scale we will continue to monitor. 5. Anxiety. Continue lorazepam. 6. Chronic obstructive pulmonary disease. Continue breathing treatment, steroid, pulmonology has been consulted. 7. History of arrhythmia. Continue amiodarone, Aspirin. 8. Dyslipidemia. Continue statin. 9. Major depression. Continue Zoloft GI and DVT prophylaxis We will continue to monitor patient closely. Further recommendations, management and treatment as per clinical course. press manager consult for a ARU eval Problems: Subjective 24 Hr Interval Summary Free Text/Dictation Patient denies of any chest pain or shortness of breath Decrease in severity of cough Tolerating hemodialysis Exam/Review of Systems Vital Signs Vitals Vital Signs Date Time Temp Pulse Resp B/P Pulse Ox O2 Delivery O2 Flow Rate FiO2 12/15/16 11:13 97.7 68 18 134/64 96 12/15/16 07:47 Nasal Cannula 3.0 12/12/16 21:13 35 Intake and Output 12/14/16 12/14/16 12/15/16 15:00 23:00 07:00 Intake Total 750 ml Output Total 450 ml Balance 300 ml Exam General: The patient is well-developed, Not in acute distress. HEENT: Atraumatic, normocephalic. The pupils are equal and round . Neck: Supple with full range of motion. Chest: Normal expansion of the thorax during inspiration Lungs: Clear to auscultation bilaterally Heart: Normal S1-S2, Regular rhythm and rate. Stage 3/6 systolic murmur at the apex Abdomen: Soft , nontender, nondistended , bowel sounds are present. Extremities: Left upper extremity weakness, no edema no cyanosis Neurologic: Normal mental status,The patient is awake, alert and oriented . Results Result Diagram: 12/15/16 0515 12/15/16 0515 Results 24 hrs Laboratory Tests Test 12/15/16 05:15 Anion Gap 23 H Basophils # 0.0 Basophils % 0.0 Blood Urea Nitrogen 87 H Calcium Level 8.6 Carbon Dioxide Level 20 L Chloride Level 93 L Creatinine 5.77 H Eosinophils # 0.0 Eosinophils % 0.0 Glucose Level 115 Hematocrit 36.6 L Hemoglobin 11.8 L Lymphocytes # 0.3 L Lymphocytes % 3.8 L Mean Corpuscular Hemoglobin 27.8 L Mean Corpuscular Hemoglobin Concent 32.2 Mean Corpuscular Volume 86.1 Mean Platelet Volume 10.7 H Monocytes # 0.4 Monocytes % 4.0 Neutrophils # 8.2 H Neutrophils % 91.4 H Nucleated Red Blood Cells # 0.0 Nucleated Red Blood Cells % 0.0 Platelet Count 222 Potassium Level 4.0 Random Vancomycin Level 10.6 Red Blood Count 4.25 L Red Cell Distribution Width 15.8 H Sodium Level 132 L White Blood Count 9.0 # Medications Medications Current Medications Amiodarone HCl (Cordarone) 200 mg DAILY PO Last administered on 12/15/16 09:55 ; Admin Dose 200 MG; Start 12/13/16 at 09:00 Atorvastatin Calcium (Lipitor) 20 mg QHS PO Last administered on 12/14/16 20: 12; Admin Dose 20 MG; Start 12/12/16 at 21:00 Furosemide (Lasix) 80 mg DAILY PO Last administered on 12/15/16 09:54; Admin Dose 80 MG; Start 12/13/16 at 09:00 Hydrocortisone (Cortef) 10 mg DAILY PO Last administered on 12/15/16 09:56; Admin Dose 10 MG; Start 12/12/16 at 11:30 Metoprolol Tartrate (Lopressor) 25 mg BID PO Last administered on 12/15/16 09: 55; Admin Dose 25 MG; Start 12/12/16 at 21:00 Sertraline HCl (Zoloft) 25 mg DAILY PO Last administered on 12/15/16 09:55; Admin Dose 25 MG; Start 12/13/16 at 09:00 Tamsulosin HCl (Flomax) 0.4 mg HS PO Last administered on 12/14/16 20:12; Admin Dose 0.4 MG; Start 12/12/16 at 21:00 Salmeterol Xinafoate/ Fluticasone (Advair 100/50 Diskus) 1 inh BID INH Last administered on 12/15/16 09:54; Admin Dose 1 INH; Start 12/12/16 at 21:00 Ondansetron HCl (Zofran Inj) 4 mg Q6H PRN IV NAUSEA AND/OR VOMITING; Start 12/12 at 10:30 Aspirin (Aspirin) 81 mg DAILY PO Last administered on 12/15/16 09:54; Admin Dose 81 MG; Start 12/13/16 at 09:00 Nitroglycerin (Nitroglycerin (Sl Tab) 0.4 Mg) 1 tab Q5M PRN SL CHEST PAIN; Start 12/12/16 at 10:30 Acetaminophen (Tylenol Tab) 650 mg Q6H PRN PO PAIN LEVEL 1-3 OR FEVER; Start at 10:30 Acetaminophen (Tylenol Supp) 650 mg Q6H PRN [place] PAIN LEVEL 1-3 OR FEVER; Start 12/12/16 at 10:30 Morphine Sulfate (morphine) 1 mg Q4H PRN IV PAIN LEVEL 7-10 Last administered on 12/14/16 18:15; Admin Dose 1 MG; Start 12/12/16 at 10:30 Docusate Sodium (Colace) 100 mg Q12H PRN PO CONSTIPATION; Start 12/12/16 at 10: 30 Famotidine (Pepcid) 20 mg DAILY PO Last administered on 12/15/16 09:55; Admin Dose 20 MG; Start 12/12/16 at 12:00 Lorazepam 1 mg 1 mg Q8H PRN PO ANXIETY Last administered on 12/14/16 21:12; Admin Dose 1 MG; Start 12/12/16 at 18:30 Cefepime HCl (Maxipime 1gm/50 ml (Pmx)) 50 ml @ 100 mls/hr DAILY IVPB Last administered on 12/15/16 09:54; Admin Dose 100 MLS/HR; Start 12/13/16 at 12:30 Guaifenesin/ Codeine Phosphate 5 ml 5 ml Q4H PRN PO COUGH Last administered on 12/14/16 15:08; Admin Dose 5 ML; Start 12/14/16 at 14:00 Vancomycin HCl/ Sodium Chloride (Vancocin/NS) 250 ml @ 83.333 mls/ hr 13 IVPB ; Start 12/15/16 at 13:00; Stop 12/15/16 at 23:00 KATI RANDALL MD Dec 15, 2016 11:40
--- NOTE | 2016-12-15 12:39 | CONS ---
Date/Time of Note Date/Time of Note DATE: 12/15/16 TIME: 12:37 Assessment/Plan Assessment/Plan Additional Assessment/Plan Assessment recommendations; 1. Patient admitted for bilateral pneumonia with marked clinical and radiological improvement. 2. 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 3. End-stage renal disease on hemodialysis. 4. 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 Continue current treatment. Patient will be transferred to retirement. Continue IV antibiotics for an additional 48 hours. I will sign off , please reconsult if needed, thanks for the referral. Consultation Date/Type/Reason Admit Date/Time Dec 12, 2016 at 14:52 Initial Consult Date 12/11/16 Type of Consultation: Pulmonary 24 HR Interval Summary Free Text/Dictation Patient condition is stable. Denies any shortness of breath, chest pain, wheezing, sputum production. Any fever or chills. Currently getting hemodialysis at bedside. General exam; elderly male, currently in no distress. Awake and alert. Exam/Review of Systems Vital Signs Vitals Vital Signs Date Time Temp Pulse Resp B/P Pulse Ox O2 Delivery O2 Flow Rate FiO2 12/15/16 11:13 97.7 68 18 134/64 96 12/15/16 07:47 Nasal Cannula 3.0 12/12/16 21:13 35 Intake and Output 12/14/16 12/14/16 12/15/16 15:00 23:00 07:00 Intake Total 750 ml Output Total 450 ml Balance 300 ml Exam H EENT examination; supple neck, no JVD. No lymphadenopathy. Midline trachea. No neck masses. There is a well-healed tracheostomy scar. Pupils are midsize and reactive to light. Pharynx is clear. Chest examination; clear to auscultation bilaterally. S1-S2 audible, no murmurs. Regular rhythm. Abdomen examination; soft, nondistended. No organomegaly. Bowel sounds audible. Extremity examination; no peripheral edema. [employer] examination; no focal deficit. Results Result Diagram: 12/15/16 0515 12/15/16 0515 Results 24 hrs Laboratory Tests Test 12/15/16 05:15 Anion Gap 23 H Basophils # 0.0 Basophils % 0.0 Blood Urea Nitrogen 87 H Calcium Level 8.6 Carbon Dioxide Level 20 L Chloride Level 93 L Creatinine 5.77 H Eosinophils # 0.0 Eosinophils % 0.0 Glucose Level 115 Hematocrit 36.6 L Hemoglobin 11.8 L Lymphocytes # 0.3 L Lymphocytes % 3.8 L Mean Corpuscular Hemoglobin 27.8 L Mean Corpuscular Hemoglobin Concent 32.2 Mean Corpuscular Volume 86.1 Mean Platelet Volume 10.7 H Monocytes # 0.4 Monocytes % 4.0 Neutrophils # 8.2 H Neutrophils % 91.4 H Nucleated Red Blood Cells # 0.0 Nucleated Red Blood Cells % 0.0 Platelet Count 222 Potassium Level 4.0 Random Vancomycin Level 10.6 Red Blood Count 4.25 L Red Cell Distribution Width 15.8 H Sodium Level 132 L White Blood Count 9.0 # Medications Medications Current Medications Amiodarone HCl (Cordarone) 200 mg DAILY PO Last administered on 12/15/16 09:55 ; Admin Dose 200 MG; Start 12/13/16 at 09:00 Atorvastatin Calcium (Lipitor) 20 mg QHS PO Last administered on 12/14/16 20: 12; Admin Dose 20 MG; Start 12/12/16 at 21:00 Furosemide (Lasix) 80 mg DAILY PO Last administered on 12/15/16 09:54; Admin Dose 80 MG; Start 12/13/16 at 09:00 Hydrocortisone (Cortef) 10 mg DAILY PO Last administered on 12/15/16 09:56; Admin Dose 10 MG; Start 12/12/16 at 11:30 Metoprolol Tartrate (Lopressor) 25 mg BID PO Last administered on 12/15/16 09: 55; Admin Dose 25 MG; Start 12/12/16 at 21:00 Sertraline HCl (Zoloft) 25 mg DAILY PO Last administered on 12/15/16 09:55; Admin Dose 25 MG; Start 12/13/16 at 09:00 Tamsulosin HCl (Flomax) 0.4 mg HS PO Last administered on 12/14/16 20:12; Admin Dose 0.4 MG; Start 12/12/16 at 21:00 Salmeterol Xinafoate/ Fluticasone (Advair 100/50 Diskus) 1 inh BID INH Last administered on 12/15/16 09:54; Admin Dose 1 INH; Start 12/12/16 at 21:00 Ondansetron HCl (Zofran Inj) 4 mg Q6H PRN IV NAUSEA AND/OR VOMITING; Start 12/12 at 10:30 Aspirin (Aspirin) 81 mg DAILY PO Last administered on 12/15/16 09:54; Admin Dose 81 MG; Start 12/13/16 at 09:00 Nitroglycerin (Nitroglycerin (Sl Tab) 0.4 Mg) 1 tab Q5M PRN SL CHEST PAIN; Start 12/12/16 at 10:30 Acetaminophen (Tylenol Tab) 650 mg Q6H PRN PO PAIN LEVEL 1-3 OR FEVER; Start at 10:30 Acetaminophen (Tylenol Supp) 650 mg Q6H PRN [place] PAIN LEVEL 1-3 OR FEVER; Start 12/12/16 at 10:30 Morphine Sulfate (morphine) 1 mg Q4H PRN IV PAIN LEVEL 7-10 Last administered on 12/14/16 18:15; Admin Dose 1 MG; Start 12/12/16 at 10:30 Docusate Sodium (Colace) 100 mg Q12H PRN PO CONSTIPATION; Start 12/12/16 at 10: 30 Famotidine (Pepcid) 20 mg DAILY PO Last administered on 12/15/16 09:55; Admin Dose 20 MG; Start 12/12/16 at 12:00 Lorazepam 1 mg 1 mg Q8H PRN PO ANXIETY Last administered on 12/14/16 21:12; Admin Dose 1 MG; Start 12/12/16 at 18:30 Cefepime HCl (Maxipime 1gm/50 ml (Pmx)) 50 ml @ 100 mls/hr DAILY IVPB Last administered on 12/15/16 09:54; Admin Dose 100 MLS/HR; Start 12/13/16 at 12:30 Guaifenesin/ Codeine Phosphate 5 ml 5 ml Q4H PRN PO COUGH Last administered on 12/14/16 15:08; Admin Dose 5 ML; Start 12/14/16 at 14:00 Vancomycin HCl/ Sodium Chloride (Vancocin/NS) 250 ml @ 83.333 mls/ hr 13 IVPB ; Start 12/15/16 at 13:00; Stop 12/15/16 at 23:00 MADONNA MORALES Dec 15, 2016 12:39
[2016-12-15] MEDS ORDERED: VANCOMYCIN 1.25 GM in SOD CHLORIDE 0.9% 250 ML IVPB SCH (13:00)
[2016-12-15] MEDS: TAMSULOSIN (SR) 0.4 MG CAP PO SCH (22:08)
[2016-12-15] MEDS: ATORVASTATIN 20 MG TAB PO SCH (22:08)
[2016-12-15] MEDS: GUAIFENESIN/CODEINE 5ML CUP PO PRN (22:15)
[2016-12-15] MEDS: LORAZEPAM 1 MG TAB PO PRN (22:15)
[2016-12-15] MEDS: ALBUTEROL/IPRATROPIUM (NEB) 3 ML AMP HHN PRN (23:04)
[2016-12-15] MEDS: ACETAMINOPHEN 325 MG TAB PO PRN (23:29)
[2016-12-16] VITALS (12 sets, daily range): BP systolic 139–154; BP diastolic 67–74; PULSE 64–71; RESP 18–20
[2016-12-16 05:40] LABS: ADD SCAN DIFF NO
[2016-12-16 05:57] LABS: HEMATOCRIT 40.5 % (42.0-52.0); HEMOGLOBIN 12.9 g/dl (14.0-18.0); LYMPHOCYTES # 0.9 10^3/ul (0.8-2.9); LYMPHOCYTES % 8.9 % (15.0-51.0); MEAN CORPUSCULAR HEMOGLOBIN 27.9 pg (29.0-33.0); MEAN CORPUSCULAR HGB CONC 31.9 g/dl (32.0-37.0); MEAN CORPUSCULAR VOLUME 87.5 fl (82.0-101.0); MEAN PLATELET VOLUME 10.5 fl (7.4-10.4); MONOCYTE # 0.6 10^3/ul (0.3-0.9); MONOCYTES % 6.3 % (0.0-11.0); NEUTROPHIL # 8.3 10^3/ul (1.6-7.5); NEUTROPHILS % 84.3 % (39.0-77.0); PLATELET COUNT 247 10^3/UL (140-415); RED BLOOD COUNT 4.63 10^6/ul (4.70-6.10); WHITE BLOOD COUNT 9.8 10^3/ul (4.8-10.8)
[2016-12-16 06:14] LABS: POTASSIUM 3.4 mmol/L (3.5-5.1)
[2016-12-16 06:17] LABS: CREATININE 4.63 mg/dl (0.61-1.24)
[2016-12-16 06:18] LABS: CALCIUM 8.6 mg/dl (8.4-10.2); PHOSPHORUS 4.3 mg/dl (2.5-4.9)
[2016-12-16] MEDS ORDERED: POTASSIUM CHLORIDE (SR) 20 MEQ TAB PO STA (07:57)
[2016-12-16] MEDS: GUAIFENESIN/CODEINE 5ML CUP PO PRN ×2 (09:53→21:34)
[2016-12-16] MEDS: CEFEPIME 1GM/50 ML (PMX) 50 ML IVPB SCH (09:53)
[2016-12-16] MEDS: HYDROCORTISONE 5 MG TAB PO SCH (09:54)
[2016-12-16] MEDS: ASPIRIN 81 MG TAB PO SCH (09:54)
[2016-12-16] MEDS: SERTRALINE 50 MG TAB PO SCH (09:55)
[2016-12-16] MEDS: FAMOTIDINE 20 MG TAB PO SCH (09:56)
[2016-12-16] MEDS: METOPROLOL 25 MG TAB PO SCH ×2 (09:56→21:34)
[2016-12-16] MEDS: FUROSEMIDE 40 MG TAB PO SCH (09:56)
[2016-12-16] MEDS: AMIODARONE 200 MG TAB PO SCH (09:57)
[2016-12-16] MEDS: SALMETEROL/FLUTICASONE 100/50 INHA INH SCH ×2 (09:58→21:34)
--- NOTE | 2016-12-16 10:59 | PN ---
DATE: 12/16/2016 SUBJECTIVE: The patient is stable. The patient had hemodialysis yesterday, tolerated well with 3 l iters removed. OBJECTIVE: VITAL SIGNS: Blood pressure 142/67, respirations 20, pulse 71, temperature 98.0. HEENT: Head is normocephalic. NECK: Supple. HEART: Regular rate. LUNGS: Show diminished breath sounds at base. ABDOMEN: Soft, nontender to palpation. No rebound or guarding. EXTREMITIES: Negative for clubbing, cyanosis, no edema. DERMATOLOGIC: No rashes. MUSCULOSKELETAL: No joint effusions. NEUROLOGIC: No change in exam. MEDICATIONS: Reviewed. LABORATORY DATA: Showed sodium 136, potassium 3.4, BUN 56, creatinine 4.63, white count 9.8, hemogl obin 10.9, hematocrit 40.5, platelet count 247. ASSESSMENT AND PLAN: 1. End-stage renal disease. The patient is on dialysis Saturday, , Saturday, with hemodialy sis yesterday, tolerated it well. Anticipate dialysis on Saturday. 2. Anemia of end-stage renal disease. Continue to monitor H and H levels. Continue Epogen. 3. Hypokalemia, replete potassium chloride. 4. Hypertension. Continue current blood pressure regimen. Continue ultrafiltration with dialysis. 5. Sepsis secondary to pneumonia. Continue current antibiotic regimen. 6. Acute hypoxemic respiratory failure secondary to pneumonia. The patient is clinically improving . 7. History of West Nile encephalitis. 8. Status post renal insufficiency. Continue Cortef. 9. Arrhythmia. Continue amiodarone. 10. Diabetes. Continue Accu-Cheks, insulin sliding scale. Dictated By: MANDY CERON/HEDY Conf#: [id number] DID#: [id number]
--- NOTE | 2016-12-16 12:33 | PN ---
Date/Time of Note Date/Time of Note DATE: 12/16/16 TIME: 12:31 Assessment/Plan VTE Prophylaxis VTE Prophylaxis Intervention: heparin Lines/Catheters IV [facility] Type (from [facility] PERM CATH. Urinary Cath still in place: No Assessment/Plan Chief Complaint/Hosp Course ASSESSMENT AND PLAN: 1. Recurrent community-acquired pneumonia , continue cefepime. Pulmonology has been consulted. 2. End-stage renal disease on hemodialysis. 3. Essential hypertension well controlled on medical management. 4. Diabetes mellitus. Continue insulin sliding scale we will continue to monitor. 5. Anxiety. Continue lorazepam. 6. Chronic obstructive pulmonary disease. Continue breathing treatment, steroid, pulmonology has been consulted. 7. History of arrhythmia. Continue amiodarone, Aspirin. 8. Dyslipidemia. Continue statin. 9. Major depression. Continue Zoloft 10. Mitral stenosis. Patient is being evaluated by cardiology as outpatient for possible surgical intervention GI and DVT prophylaxis We will continue to monitor patient closely. Further recommendations, management and treatment as per clinical course. application release manager consult for a ARU eval Problems: Subjective 24 Hr Interval Summary Free Text/Dictation No acute event for the past 24 hours Patient has tolerated hemodialysis Tolerating oral intake Still has been having generalized weakness and nonproductive cough Exam/Review of Systems Vital Signs Vitals Vital Signs Date Time Temp Pulse Resp B/P Pulse Ox O2 Delivery O2 Flow Rate FiO2 12/16/16 11:22 97.2 68 19 150/68 100 12/16/16 09:12 3.0 32 12/15/16 08:15 Nasal Cannula Intake and Output 12/15/16 12/15/16 12/16/16 15:00 23:00 07:00 Intake Total 500 ml 1190 ml Output Total 3500 ml 100 ml Balance -3000 ml 1090 ml Exam General: The patient is well-developed, Not in acute distress. HEENT: Atraumatic, normocephalic. The pupils are equal and round . Neck: Supple with full range of motion. Chest: Normal expansion of the thorax during inspiration Lungs: Clear to auscultation bilaterally Heart: Normal S1-S2, Regular rhythm and rate. Stage 3/6 systolic murmur at the apex Abdomen: Soft , nontender, nondistended , bowel sounds are present. Extremities: , no edema no cyanosis, left upper extremity weakness Neurologic: Normal mental status,The patient is awake, alert and oriented . Results Result Diagram: 12/16/16 0515 12/16/16 0515 Results 24 hrs Laboratory Tests Test 12/16/16 05:15 Anion Gap 19 H Basophils # 0.0 Basophils % 0.0 Blood Urea Nitrogen 56 #H Calcium Level 8.6 Carbon Dioxide Level 22 Chloride Level 98 Creatinine 4.63 #H Eosinophils # 0.0 Eosinophils % 0.0 Glucose Level 84 Hematocrit 40.5 L Hemoglobin 12.9 L Lymphocytes # 0.9 Lymphocytes % 8.9 L Magnesium Level 2.0 Mean Corpuscular Hemoglobin 27.9 L Mean Corpuscular Hemoglobin Concent 31.9 L Mean Corpuscular Volume 87.5 Mean Platelet Volume 10.5 H Monocytes # 0.6 Monocytes % 6.3 Neutrophils # 8.3 H Neutrophils % 84.3 H Nucleated Red Blood Cells # 0.0 Nucleated Red Blood Cells % 0.0 Phosphorus Level 4.3 Platelet Count 247 Potassium Level 3.4 L Red Blood Count 4.63 L Red Cell Distribution Width 16.0 H Sodium Level 136 White Blood Count 9.8 Medications Medications Current Medications Amiodarone HCl (Cordarone) 200 mg DAILY PO Last administered on 12/16/16 09:57 ; Admin Dose 200 MG; Start 12/13/16 at 09:00 Atorvastatin Calcium (Lipitor) 20 mg QHS PO Last administered on 12/15/16 22: 08; Admin Dose 20 MG; Start 12/12/16 at 21:00 Furosemide (Lasix) 80 mg DAILY PO Last administered on 12/16/16 09:56; Admin Dose 80 MG; Start 12/13/16 at 09:00 Hydrocortisone (Cortef) 10 mg DAILY PO Last administered on 12/16/16 09:54; Admin Dose 10 MG; Start 12/12/16 at 11:30 Metoprolol Tartrate (Lopressor) 25 mg BID PO Last administered on 12/16/16 09: 56; Admin Dose 25 MG; Start 12/12/16 at 21:00 Sertraline HCl (Zoloft) 25 mg DAILY PO Last administered on 12/16/16 09:55; Admin Dose 25 MG; Start 12/13/16 at 09:00 Tamsulosin HCl (Flomax) 0.4 mg HS PO Last administered on 12/15/16 22:08; Admin Dose 0.4 MG; Start 12/12/16 at 21:00 Salmeterol Xinafoate/ Fluticasone (Advair 100/50 Diskus) 1 inh BID INH Last administered on 12/16/16 09:58; Admin Dose 1 INH; Start 12/12/16 at 21:00 Ondansetron HCl (Zofran Inj) 4 mg Q6H PRN IV NAUSEA AND/OR VOMITING; Start 12/12 at 10:30 Aspirin (Aspirin) 81 mg DAILY PO Last administered on 12/16/16 09:54; Admin Dose 81 MG; Start 12/13/16 at 09:00 Nitroglycerin (Nitroglycerin (Sl Tab) 0.4 Mg) 1 tab Q5M PRN SL CHEST PAIN; Start 12/12/16 at 10:30 Acetaminophen (Tylenol Tab) 650 mg Q6H PRN PO PAIN LEVEL 1-3 OR FEVER Last administered on 12/15/16 23:29; Admin Dose 650 MG; Start 12/12/16 at 10:30 Acetaminophen (Tylenol Supp) 650 mg Q6H PRN [place] PAIN LEVEL 1-3 OR FEVER; Start 12/12/16 at 10:30 Morphine Sulfate (morphine) 1 mg Q4H PRN IV PAIN LEVEL 7-10 Last administered on 12/14/16 18:15; Admin Dose 1 MG; Start 12/12/16 at 10:30 Docusate Sodium (Colace) 100 mg Q12H PRN PO CONSTIPATION; Start 12/12/16 at 10: 30 Famotidine (Pepcid) 20 mg DAILY PO Last administered on 12/16/16 09:56; Admin Dose 20 MG; Start 12/12/16 at 12:00 Lorazepam 1 mg 1 mg Q8H PRN PO ANXIETY Last administered on 12/15/16 22:15; Admin Dose 1 MG; Start 12/12/16 at 18:30 Cefepime HCl (Maxipime 1gm/50 ml (Pmx)) 50 ml @ 100 mls/hr DAILY IVPB Last administered on 12/16/16 09:53; Admin Dose 100 MLS/HR; Start 12/13/16 at 12:30 Guaifenesin/ Codeine Phosphate (Robitussin Ac Liquid Cup) 5 ml Q4H PRN PO COUGH Last administered on 12/16/16 09:53; Admin Dose 5 ML; Start 12/14/16 at 14:00 KATI RANDALL MD Dec 16, 2016 12:33
--- NOTE | 2016-12-16 15:06 | CONS ---
Date/Time of Note Date/Time of Note DATE: 12/16/16 TIME: 15:02 Assessment/Plan Assessment/Plan Chief Complaint/Hosp Course ID PROGRESS NOTE TOTAL ABX DAY #4 => Vanco IV + Cefepime + s/p Fosfomycin x1 3 24H INTERVAL SUMMARY * Clinically stable - no new issues, calm, cooperative, Afebrile, VSS, NAD * BCx (-), Urine (+)VRE, Influenza A/B (-) PHYSICAL EXAMINATION: GENERAL: yo lethargic HEENT: Unremarkable NECK: Supple, full ROM CHEST: Equal chest rise bilaterally, without dyspnea on observation HEART: Pulse RRR ABDOMEN: Soft EXTREMITIES: Warm SKIN: See hard chart skin assessment ID ASSESSMENT: 70 yo M w/Hx of WNV encephalapathy admit with: 1. Sepsis on admission w/fevers >101.+, leukocytosis, tachycardia => RESOLVED * BCx (-) * WBC normalized post ABX - now rising on IVC steroids => WNL TODAY 2. Acute respiratory distress -> COPD exacerbation (+) recurrent bilateral HCAP => STABLE * Hx of prior Trach-now decannulated 3. Pneumonia w/pulmonary edema * CXR 12/15/16: Improving patchy bilateral interstitial opacities are suggestive of pulmonary edema, though multifocal infiltrates can have this appearance. 4. End-stage renal disease, on hemodialysis. 5. Diabetes. 6. VRE early UTI w/low colony counts from 12/12/16 -> s/p Fosfomycin x1 12/14 => TREATED * URINE CULTURE Final Organism 1 VANCO RESISTANT ENTEROCOCCUS COLONY COUNT 10,000 - 20,000 CFU/ml . MULTI DRUG RESISTANT ORGANISM (-)MRSA Nares INVASIVES: PermCath ABX ALLERGY: KNDA CURRENT ABX: TOTAL ABX DAY #4 => Vanco IV + Cefepime + s/p Fosfomycin x1 310 ID RECOMMENDATIONS: 1. Patient admitted for bilateral pneumonia with marked clinical and radiological improvement. 2. Continue current ABX -> consider taper to PO Doxycycline if continues to improve 3. Increase mobility, working w/PTx . Problems: Consultation Date/Type/Reason Admit Date/Time Dec 12, 2016 at 14:52 Initial Consult Date 12/11/16 Type of Consultation: ID Exam/Review of Systems Vital Signs Vitals Vital Signs Date Time Temp Pulse Resp B/P Pulse Ox O2 Delivery O2 Flow Rate FiO2 12/16/16 12:51 3.0 32 12/16/16 12:12 64 12/16/16 11:22 97.2 19 150/68 100 12/16/16 08:20 Nasal Cannula Intake and Output 12/15/16 12/15/16 12/16/16 15:00 23:00 07:00 Intake Total 500 ml 1190 ml Output Total 3500 ml 100 ml Balance -3000 ml 1090 ml Results Result Diagram: 12/16/16 0515 12/16/16 0515 Results 24 hrs Laboratory Tests Test 12/16/16 05:15 Anion Gap 19 H Basophils # 0.0 Basophils % 0.0 Blood Urea Nitrogen 56 #H Calcium Level 8.6 Carbon Dioxide Level 22 Chloride Level 98 Creatinine 4.63 #H Eosinophils # 0.0 Eosinophils % 0.0 Glucose Level 84 Hematocrit 40.5 L Hemoglobin 12.9 L Lymphocytes # 0.9 Lymphocytes % 8.9 L Magnesium Level 2.0 Mean Corpuscular Hemoglobin 27.9 L Mean Corpuscular Hemoglobin Concent 31.9 L Mean Corpuscular Volume 87.5 Mean Platelet Volume 10.5 H Monocytes # 0.6 Monocytes % 6.3 Neutrophils # 8.3 H Neutrophils % 84.3 H Nucleated Red Blood Cells # 0.0 Nucleated Red Blood Cells % 0.0 Phosphorus Level 4.3 Platelet Count 247 Potassium Level 3.4 L Red Blood Count 4.63 L Red Cell Distribution Width 16.0 H Sodium Level 136 White Blood Count 9.8 Medications Medications Current Medications Amiodarone HCl (Cordarone) 200 mg DAILY PO Last administered on 12/16/16 09:57 ; Admin Dose 200 MG; Start 12/13/16 at 09:00 Atorvastatin Calcium (Lipitor) 20 mg QHS PO Last administered on 12/15/16 22: 08; Admin Dose 20 MG; Start 12/12/16 at 21:00 Furosemide (Lasix) 80 mg DAILY PO Last administered on 12/16/16 09:56; Admin Dose 80 MG; Start 12/13/16 at 09:00 Hydrocortisone (Cortef) 10 mg DAILY PO Last administered on 12/16/16 09:54; Admin Dose 10 MG; Start 12/12/16 at 11:30 Metoprolol Tartrate (Lopressor) 25 mg BID PO Last administered on 12/16/16 09: 56; Admin Dose 25 MG; Start 12/12/16 at 21:00 Sertraline HCl (Zoloft) 25 mg DAILY PO Last administered on 12/16/16 09:55; Admin Dose 25 MG; Start 12/13/16 at 09:00 Tamsulosin HCl (Flomax) 0.4 mg HS PO Last administered on 12/15/16 22:08; Admin Dose 0.4 MG; Start 12/12/16 at 21:00 Salmeterol Xinafoate/ Fluticasone (Advair 100/50 Diskus) 1 inh BID INH Last administered on 12/16/16 09:58; Admin Dose 1 INH; Start 12/12/16 at 21:00 Ondansetron HCl (Zofran Inj) 4 mg Q6H PRN IV NAUSEA AND/OR VOMITING; Start 12/12 at 10:30 Aspirin (Aspirin) 81 mg DAILY PO Last administered on 12/16/16 09:54; Admin Dose 81 MG; Start 12/13/16 at 09:00 Nitroglycerin (Nitroglycerin (Sl Tab) 0.4 Mg) 1 tab Q5M PRN SL CHEST PAIN; Start 12/12/16 at 10:30 Acetaminophen (Tylenol Tab) 650 mg Q6H PRN PO PAIN LEVEL 1-3 OR FEVER Last administered on 12/15/16 23:29; Admin Dose 650 MG; Start 12/12/16 at 10:30 Acetaminophen (Tylenol Supp) 650 mg Q6H PRN AR PAIN LEVEL 1-3 OR FEVER; Start 12/12/16 at 10:30 Morphine Sulfate (morphine) 1 mg Q4H PRN IV PAIN LEVEL 7-10 Last administered on 12/14/16 18:15; Admin Dose 1 MG; Start 12/12/16 at 10:30 Docusate Sodium (Colace) 100 mg Q12H PRN PO CONSTIPATION; Start 12/12/16 at 10: 30 Famotidine (Pepcid) 20 mg DAILY PO Last administered on 12/16/16 09:56; Admin Dose 20 MG; Start 12/12/16 at 12:00 Lorazepam 1 mg 1 mg Q8H PRN PO ANXIETY Last administered on 12/15/16 22:15; Admin Dose 1 MG; Start 12/12/16 at 18:30 Cefepime HCl (Maxipime 1gm/50 ml (Pmx)) 50 ml @ 100 mls/hr DAILY IVPB Last administered on 12/16/16 09:53; Admin Dose 100 MLS/HR; Start 12/13/16 at 12:30 Guaifenesin/ Codeine Phosphate (Robitussin Ac Liquid Cup) 5 ml Q4H PRN PO COUGH Last administered on 12/16/16 09:53; Admin Dose 5 ML; Start 12/14/16 at 14:00 CLAUDIA OROPEZA NP Dec 16, 2016 15:06
[2016-12-16] MEDS: ATORVASTATIN 20 MG TAB PO SCH (21:33)
[2016-12-16] MEDS: TAMSULOSIN (SR) 0.4 MG CAP PO SCH (21:33)
[2016-12-16] MEDS: LORAZEPAM 1 MG TAB PO PRN (21:44)
[2016-12-17] VITALS (14 sets, daily range): BP systolic 121–148; BP diastolic 58–71; PULSE 67–75; RESP 16–19
[2016-12-17 07:28] LABS: POTASSIUM 3.6 mmol/L (3.5-5.1)
[2016-12-17 07:30] LABS: CREATININE 5.94 mg/dl (0.61-1.24)
[2016-12-17 07:31] LABS: PHOSPHORUS 4.8 mg/dl (2.5-4.9)
[2016-12-17 07:32] LABS: MAGNESIUM 1.9 mg/dl (1.7-2.5)
[2016-12-17] MEDS: CEFEPIME 1GM/50 ML (PMX) 50 ML IVPB SCH (09:00)
[2016-12-17] MEDS: SALMETEROL/FLUTICASONE 100/50 INHA INH SCH ×2 (09:00→21:49)
[2016-12-17] MEDS: HYDROCORTISONE 5 MG TAB PO SCH (09:00)
--- NOTE | 2016-12-17 09:23 | PN ---
DATE: 12/17/2016 SUBJECTIVE: The patient is stable, no acute events noted. No fevers, chills, nausea, vomiting. No shortness of breath. OBJECTIVE: VITAL SIGNS: Blood pressure 137/71, respiration 19, pulse 69, temperature 98.2. HEENT: Head is normocephalic. NECK: Supple. HEART: Regular rate. LUNGS: Show diminished breath sounds at the base. ABDOMEN: Soft, nontender to palpation without rebound or guarding. EXTREMITIES: Negative for clubbing, cyanosis, no edema. DERMATOLOGIC: No rashes. MUSCULOSKELETAL: No joint effusions. NEUROLOGIC: No change in exam. MEDICATIONS: The patient's medications have been reviewed. LABORATORY DATA: Shows sodium 134, potassium 3.6, BUN 74, creatinine 5.94. CBC has been reviewed. ASSESSMENT AND PLAN: 1. End-stage renal disease. The patient is on dialysis, Saturday, , Saturday. Access is a P erm-A-Cath. Will plan for hemodialysis tomorrow. 2. Anemia of end-stage renal disease. Continue to monitor H and H levels. Will give Epogen as nee ded. 3. Hypertension. Continue current blood pressure regimen. 4. Sepsis secondary to pneumonia. Continue current antibiotic regimen. 5. Acute hypoxemic respiratory failure secondary to pneumonia. The patient is clinically improving . Continue current medical management. 6. History of West Nile encephalitis. 7. Adrenal insufficiency. Continue Cortef. 8. Arrhythmia. Continue amiodarone. 9. Diabetes. Continue Accu-Cheks, insulin sliding scale. Dictated By: MANDY CERON/HEDY Conf#: [id number] DID#: [id number]
[2016-12-17] MEDS: FUROSEMIDE 40 MG TAB PO SCH (10:35)
[2016-12-17] MEDS: FAMOTIDINE 20 MG TAB PO SCH (10:36)
[2016-12-17] MEDS: ASPIRIN 81 MG TAB PO SCH (10:36)
[2016-12-17] MEDS: AMIODARONE 200 MG TAB PO SCH (10:37)
[2016-12-17] MEDS: METOPROLOL 25 MG TAB PO SCH ×2 (10:42→21:50)
[2016-12-17] MEDS: SERTRALINE 50 MG TAB PO SCH (10:42)
--- NOTE | 2016-12-17 12:41 | CONS ---
Date/Time of Note Date/Time of Note DATE: 12/17/16 TIME: 12:40 Assessment/Plan Assessment/Plan Chief Complaint/Hosp Course SUBJECTIVE: No events overnight. The patient is alert, feels good, nad INDWELLINGS: Right chest PermCath. ANTIMICROBIALS: 1. Vancomycin. 2. Cefepime. PHYSICAL EXAMINATION: GENERAL: This is a well-developed elderly man who is alert, in no distress. HEENT: Head atraumatic, normocephalic. Sclerae anicteric. Buccal mucosa dry. NECK: Supple, trachea midline. CHEST: Rise symmetrical. Breath sounds with scattered crackles. HEART: S1, S2. ABDOMEN: Soft. Bowel tones present. EXTREMITIES: Without cyanosis. ASSESSMENT: 1. Resolving sepsis. 2. S/p acute respiratory failure. 3. Pneumonia==> resolving. 4. End-stage renal disease, on hemodialysis. 5. Diabetes. 6. History of West Nile virus encephalitis. PLAN: Stable. Continue present care, complete antibiotics, f/u pulmonary rec-s [facility] staff Problems: Consultation Date/Type/Reason Admit Date/Time Dec 12, 2016 at 14:52 Initial Consult Date 12/11/16 Type of Consultation: ID Exam/Review of Systems Vital Signs Vitals Vital Signs Date Time Temp Pulse Resp B/P Pulse Ox O2 Delivery O2 Flow Rate FiO2 12/17/16 12:08 97.6 72 19 130/71 97 12/17/16 05:42 3.0 12/16/16 20:00 Nasal Cannula 12/16/16 18:48 32 Intake and Output 12/16/16 12/16/16 12/17/16 15:00 23:00 07:00 Intake Total 50 ml 800 ml 480 ml Balance 50 ml 800 ml 480 ml Results Result Diagram: 12/16/16 0515 12/17/16 0600 Results 24 hrs Laboratory Tests Test 12/17/16 06:00 Anion Gap 20 H Blood Urea Nitrogen 74 H Calcium Level 8.0 L Carbon Dioxide Level 22 Chloride Level 96 L Creatinine 5.94 H Glucose Level 70 Magnesium Level 1.9 Phosphorus Level 4.8 Potassium Level 3.6 Sodium Level 134 L Medications Medications Current Medications Amiodarone HCl (Cordarone) 200 mg DAILY PO Last administered on 12/17/16t 10:37 ; Admin Dose 200 MG; Start 12/13/16 at 09:00 Atorvastatin Calcium (Lipitor) 20 mg QHS PO Last administered on 12/16/16 21: 33; Admin Dose 20 MG; Start 12/12/16 at 21:00 Furosemide (Lasix) 80 mg DAILY PO Last administered on 12/17/16 10:35; Admin Dose 80 MG; Start 12/13/16 at 09:00 Hydrocortisone (Cortef) 10 mg DAILY PO Last administered on 12/17/16 09:00; Admin Dose 10 MG; Start 12/12/16 at 11:30 Metoprolol Tartrate (Lopressor) 25 mg BID PO Last administered on 12/17/16 10: 42; Admin Dose 25 MG; Start 12/12/16 at 21:00 Sertraline HCl (Zoloft) 25 mg DAILY PO Last administered on 12/17/16 10:42; Admin Dose 25 MG; Start 12/13/16 at 09:00 Tamsulosin HCl (Flomax) 0.4 mg HS PO Last administered on 12/16/16 21:33; Admin Dose 0.4 MG; Start 12/12/16 at 21:00 Salmeterol Xinafoate/ Fluticasone (Advair 100/50 Diskus) 1 inh BID INH Last administered on 12/16/16 21:34; Admin Dose 1 INH; Start 12/12/16 at 21:00 Ondansetron HCl (Zofran Inj) 4 mg Q6H PRN IV NAUSEA AND/OR VOMITING; Start 12/12 at 10:30 Aspirin (Aspirin) 81 mg DAILY PO Last administered on 12/17/16 10:36; Admin Dose 81 MG; Start 12/13/16 at 09:00 Nitroglycerin (Nitroglycerin (Sl Tab) 0.4 Mg) 1 tab Q5M PRN SL CHEST PAIN; Start 12/12/16 at 10:30 Acetaminophen (Tylenol Tab) 650 mg Q6H PRN PO PAIN LEVEL 1-3 OR FEVER Last administered on 12/15/16 23:29; Admin Dose 650 MG; Start 12/12/16 at 10:30 Acetaminophen (Tylenol Supp) 650 mg Q6H PRN SD PAIN LEVEL 1-3 OR FEVER; Start 12/12/16 at 10:30 Morphine Sulfate (morphine) 1 mg Q4H PRN IV PAIN LEVEL 7-10 Last administered on 12/14/16 18:15; Admin Dose 1 MG; Start 12/12/16 at 10:30 Docusate Sodium (Colace) 100 mg Q12H PRN PO CONSTIPATION; Start 12/12/16 at 10: 30 Famotidine (Pepcid) 20 mg DAILY PO Last administered on 12/17/16 10:36; Admin Dose 20 MG; Start 12/12/16 at 12:00 Lorazepam 1 mg 1 mg Q8H PRN PO ANXIETY Last administered on 12/16/16 21:44; Admin Dose 1 MG; Start 12/12/16 at 18:30 Cefepime HCl (Maxipime 1gm/50 ml (Pmx)) 50 ml @ 100 mls/hr DAILY IVPB Last administered on 12/16/16 09:53; Admin Dose 100 MLS/HR; Start 12/13/16 at 12:30 Guaifenesin/ Codeine Phosphate (Robitussin Ac Liquid Cup) 5 ml Q4H PRN PO COUGH Last administered on 12/16/16 21:34; Admin Dose 5 ML; Start 12/14/16 at 14:00 GENIA REEVES NP Dec 17, 2016 12:41
[2016-12-17] MEDS: ONDANSETRON 4 MG INJ IV PRN ×2 (13:02→20:40)
[2016-12-17] MEDS: ACETAMINOPHEN 325 MG TAB PO PRN (13:02)
--- NOTE | 2016-12-17 13:21 | PDOCDIS ---
Discharge Instructions CONDITION Patient Condition: Stable HOME CARE INSTRUCTIONS: Special Diet: RENAL DIET. ACTIVITY: Activity Restrictions: Special Exercises FOLLOW UP/APPOINTMENTS Appointments Follow up with spike driver as outpatient Follow up with early childhood services coordinator as outpatient KATI RANDALL MD Dec 17, 2016 13:21
--- NOTE | 2016-12-17 14:21 | DS ---
DATE OF ADMISSION: 12/12/2016 DATE OF DISCHARGE: 12/17/2016 CONSULTANTS: 1. Dr. Jeff Gonzalez. 2. Dr. Karely Forbes. 3. Dr. Praneeth Correa. DIAGNOSES: 1. Recurrent community-acquired pneumonia, status post cefepime. 2. End-stage renal on hemodialysis. 3. Essential hypertension, well controlled on medical management. 4. Prediabetic on low carbohydrate diet. 5. Anxiety. Continue lorazepam. 6. History of chronic obstructive pulmonary disease. Continue breathing treatment and steroid. 7. Arrhythmia. Continue amiodarone and aspirin. 8. Dyslipidemia. Continue statin. 9. Major depression. Continue SSRI. 10. History of mitral stenosis. Patient has been followed with cardiology as outpatient for possib le surgical intervention. DISPOSITION: To [facility] versus retirement facility. I had a discussion with patient's regarding the patient would be high risk for being discharged home because of his IV antibiotic and respiratory status. MEDICATIONS: 1. Tylenol. 2. DuoNeb. 3. Amiodarone. 4. Aspirin. 5. Lipitor. 6. Cefepime x7 days. 7. Colace. 8. Pepcid. 9. Lasix. 10. Robitussin-AC. 11. Cortef. 12. Lorazepam. 13. Lopressor. 14. Nitroglycerin. 15. Advair. 16. Sertraline. 17. Flomax. 18. Vancomycin. 19. Amlodipine 5 mg. PLAN: 1. Hemodialysis Saturday, Saturday, Saturday. 2. PT, OT evaluate and treat. 3. CBC, BMP, magnesium. 4. Follow up coffee grinder as outpatient. HOSPITAL COURSE: This is a 70-year-old gentleman with past medical history of COPD, home oxygen dep endent, atrial fibrillation, hypertension, dyslipidemia, anxiety, depression, diabetes mellitus, BPH , who is on home oxygen, end-stage renal disease on hemodialysis, who was at his Hemod[facility] Center on 12/11/2016, after having 30 minutes of dialysis, patient started having difficulty breathing, wa s sent to [facility] for further evaluation. Upon arrival, patient was found to b e hypoxic and was placed on BiPAP and broad spectrum IV antibiotic. Chest x-ray demonstrated patchy right upper lobe, right lower lobe, and left perihilar infiltrate, mild cardiomyopathy, cardiomegal y, calcified aorta consistent with atherosclerosis disease. Extremity arterial study showed patent left arm dialysis fistula. Patient was also seen and evaluated by nephrology secondary to his histo ry of end-stage renal disease. Hemodialysis was managed by their service. Patient was admitted to ICU and then was transferred to telemetry. He was found to have atrial fibrillation, which was rate controlled on amiodarone and aspirin. His WBC at the time of admission was 13, although as stated above, he was started on broad spectrum IV antibiotic, and WBC has improved. His urine culture was positive for VRE sensitive to penicillin and gentamicin and ampicillin. His blood culture was found to be negative. Patient has been cleared as per coffee grinder standpoint to be transferred to [facility] or acute rehab. At this time, I strongly suggest that patient should be transferred to the [facility] or retirement facility. Unfortunately, [facility] and acute rehab have turned down patient admis leo, so I had the outsole caser to speak to the regarding the transfer to a retirement [facility] for physical therapy and breathing and respiratory therapy. Dictated By: KATI RANDALL MD PN/NTS Conf#: [id number] DID#: [id number]
--- NOTE | 2016-12-17 14:36 | PN ---
DATE: 12/17/2016 REASON FOR FOLLOWUP: Respiratory distress. SUBJECTIVE: Patient remains stable today. No new events. PHYSICAL EXAMINATION: VITAL SIGNS: Temperature 98, pulse 72, blood pressure 130/70, O2 on 3 L nasal cannula. NECK: Supple. No JVD or lymphadenopathy. CARDIAC: S1, S2, no added sounds or murmurs. CHEST: Diminished air entry bilaterally. ABDOMEN: Soft, nontender. No guarding or rebound. EXTREMITIES: No cyanosis, clubbing or edema. NEUROLOGIC: Generalized weakness. LABORATORY DATA: Per chart. IMPRESSION AND PLAN: 1. Resolving bilateral pneumonia. 2. History of West Nile encephalitis. 3. Chronic respiratory failure with tracheostomy, now decannulated. 4. End-stage renal failure on hemodialysis, From pulmonary standpoint, the patient remains stable. I agree with discharge planning. Dictated By: IKER PARKER/HEDY Conf#: [id number] DID#: [id number]
[2016-12-17] MEDS: TAMSULOSIN (SR) 0.4 MG CAP PO SCH (21:49)
[2016-12-17] MEDS: ATORVASTATIN 20 MG TAB PO SCH (21:49)
[2016-12-17] MEDS: LORAZEPAM 1 MG TAB PO PRN (21:53)
[2016-12-18] VITALS (15 sets, daily range): BP systolic 102–142; BP diastolic 54–69; PULSE 63–86; RESP 18–22
[2016-12-18] MEDS: CEFEPIME 1GM/50 ML (PMX) 50 ML IVPB SCH (09:00)
--- NOTE | 2016-12-18 09:22 | PN ---
DATE: 12/18/2016 SUBJECTIVE: The patient is stable, no acute events overnight. No fevers, chills, nausea, vomiting, shortness of breath. The patient is scheduled for hemodialysis this morning. OBJECTIVE: VITAL SIGNS: Blood pressure 142/67, respiration 18, pulse 67, temperature 98.2. HEENT: Head is normocephalic. NECK: Supple. HEART: Regular rate. LUNGS: Show diminished breath sounds at the base. ABDOMEN: Soft, nontender to palpation. No rebound or guarding. EXTREMITIES: Negative for clubbing, cyanosis, no edema. DERMATOLOGIC: No rashes. MUSCULOSKELETAL: No joint effusions. NEUROLOGIC: No change in exam. MEDICATIONS: Have been reviewed. LABORATORY DATA: Has been reviewed. ASSESSMENT AND PLAN: 1. End-stage renal disease. The patient is currently on dialysis Saturday, and Saturday. Scheduled for hemodialysis today. 2. Anemia of end-stage renal disease. Continue to monitor hemoglobin and hematocrit levels. Andrzej nue Epogen. 3. Hypertension. Continue current blood pressure regimen. 4. Sepsis secondary to pneumonia. Continue current antibiotic regimen. 5. Acute hypoxemic respiratory failure secondary to pneumonia. The patient is clinically improving . Continue current treatment plan. 6. History of West Nile encephalitis. 7. Adrenal insufficiency. Continue Cortef. 8. Arrhythmia. Continue amiodarone. 9. Diabetes, continue Accu-Cheks and insulin sliding scale. Dictated By: MANDY CERON/HEDY Conf#: [id number] DID#: [id number]
[2016-12-18] MEDS: SALMETEROL/FLUTICASONE 100/50 INHA INH SCH (14:10)
[2016-12-18] MEDS: SERTRALINE 50 MG TAB PO SCH (14:12)
[2016-12-18] MEDS: ONDANSETRON 4 MG INJ IV PRN (14:13)
[2016-12-18] MEDS: METOPROLOL 25 MG TAB PO SCH (14:13)
[2016-12-18] MEDS: FAMOTIDINE 20 MG TAB PO SCH (14:14)
[2016-12-18] MEDS: AMIODARONE 200 MG TAB PO SCH (14:14)
[2016-12-18] MEDS: HYDROCORTISONE 5 MG TAB PO SCH (14:14)
[2016-12-18] MEDS: FUROSEMIDE 40 MG TAB PO SCH (14:18)
[2016-12-18] MEDS: ASPIRIN 81 MG TAB PO SCH (14:19)
--- NOTE | 2016-12-18 14:41 | DS ---
DATE OF ADMISSION: 12/12/2016 DATE OF DISCHARGE: 12/18/2016 ADDENDUM Please see my discharge summary which was done on 12/17/2016. DIAGNOSES: 1. Recurrent community-acquired pneumonia. 2. End-stage renal disease on hemodialysis. 3. Essential hypertension. 4. Prediabetic on low-carbohydrate diet. 5. Anxiety. 6. History of chronic obstructive pulmonary disease. 7. Arrhythmia. 8. Dyslipidemia. 9. Major depression. 10. History of mitral stenosis. 11. Debility. MEDICATIONS: 1. Tylenol. 2. DuoNeb. 3. Amiodarone. 4. Aspirin. 5. Lipitor. 6. Cefepime. 7. Colace. 8. Pepcid. 9. Lasix. 10. Robitussin. 11. Cortef. 12. Lorazepam 13. Lopressor. 14. Nitroglycerin. 15. Advair. 16. Sertraline. 17. Flomax. 18. Vancomycin. 19. Amlodipine. ALLERGIES: NO KNOWN DRUG ALLERGIES. DISPOSITION: To jail facility. HOSPITAL COURSE: This is an addendum to the discharge summary which was done by me on 12/17/2016. This is a 70-year-old gentleman with past medical history of COPD, home oxygen dependent, atrial fi brillation, hypertension, dyslipidemia, anxiety, depression, diabetes mellitus, BPH, left upper extr emity weakness, status post polio, end-stage renal disease on hemodialysis, who was transferred from the hemodialysis center secondary to having difficulty breathing and was found to have right upper lobe and left perihilar infiltrates, mild cardiomegaly. The patient was started on broad-spectrum I V antibiotic. He was seen and evaluated by the cocoa bean cleaner, loss mitigation specialist and infectious disease d betzy. The patient was placed on BiPAP upon admission and was transitioned to nasal cannula, which he has been tolerating. He has been seen and evaluated by physical therapy and has been recommended to be transferred to jail facility. At this time, the patient is medically stable to be transferred to jail facility. The patient was planned to be transferred to [facility] secondary to patient being a dialysis patient they did not have any dialysis beds, and I had di scussed this matter with the patient's spouse and she has accepted the patient to be transferred to jail facility. CONDITION AT TIME OF DISCHARGE: Stable. Dictated By: KATI JAY/NTS Conf#: [id number] DID#: [id number]
--- NOTE | 2016-12-18 16:08 | PN ---
DATE: 12/18/2016 REASON FOR FOLLOWUP: Respiratory failure. SUBJECTIVE: Patient is stable this morning. OBJECTIVE: VITAL SIGNS: Temperature 97, pulse 86, blood pressure 115/65, O2 saturation 96% on 3 liters. NECK: Supple. No JVD or lymphadenopathy. CARDIAC: S1, S2. No added sounds or murmurs. CHEST: Diminished air entry bilaterally. ABDOMEN: Soft, nontender. No guarding or rebound. EXTREMITIES: No cyanosis, clubbing, or edema. NEUROLOGIC: Grossly intact. IMPRESSION AND PLAN: 1. Resolving hypoxemic respiratory failure. 2. History of West Nile encephalitis. 3. History of tracheostomy, now decannulated. 4. End-stage renal failure on hemodialysis. PLAN: 1. Agree with discharge planning. 2. Continue supplemental O2. 3. Continue deep venous thrombosis and gastrointestinal prophylaxis. Dictated By: IKER PARKER/HEDY Conf#: [id number] DID#: [id number]
--- NOTE | 2016-12-18 16:33 | CONS ---
Date/Time of Note Date/Time of Note DATE: 12/18/16 TIME: 16:31 Assessment/Plan Assessment/Plan Chief Complaint/Hosp Course SUBJECTIVE: No events overnight. The patient is alert, still coughing, no fevers, nad INDWELLINGS: Right chest PermCath. ANTIMICROBIALS: 1. Vancomycin. 2. Cefepime. PHYSICAL EXAMINATION: GENERAL: This is a well-developed elderly man who is alert, in no distress. HEENT: Head atraumatic, normocephalic. Sclerae anicteric. Buccal mucosa dry. NECK: Supple, trachea midline. CHEST: Rise symmetrical. Breath sounds with scattered crackles. HEART: S1, S2. ABDOMEN: Soft. Bowel tones present. EXTREMITIES: Without cyanosis. ASSESSMENT: 1. Resolving sepsis. 2. S/p acute respiratory failure. 3. Pneumonia==> resolving. 4. End-stage renal disease, on hemodialysis. 5. Diabetes. 6. History of West Nile virus encephalitis. PLAN: Remains stable. Continue present care, dc Radha, f/u pulmonary rec-s, anticipate dc on oral Levaquin [facility] staff Problems: Consultation Date/Type/Reason Admit Date/Time Dec 12, 2016 at 14:52 Initial Consult Date 12/11/16 Type of Consultation: ID Exam/Review of Systems Vital Signs Vitals Vital Signs Date Time Temp Pulse Resp B/P Pulse Ox O2 Delivery O2 Flow Rate FiO2 12/18/16 15:09 98.2 76 18 135/68 100 12/18/16 08:15 Nasal Cannula 3.0 12/16/16 18:48 32 Intake and Output 12/17/16 12/17/16 12/18/16 15:00 23:00 07:00 Intake Total 650 ml Output Total 3 ml Balance 647 ml Results Result Diagram: 12/16/16 0515 12/17/16 0600 Results 24 hrs Laboratory Tests Test 12/18/16 05:00 Random Vancomycin Level 17.1 Medications Medications Current Medications Amiodarone HCl (Cordarone) 200 mg DAILY PO Last administered on 12/18/16 14:14 ; Admin Dose 200 MG; Start 12/13/16 at 09:00 Atorvastatin Calcium (Lipitor) 20 mg QHS PO Last administered on 12/17/16 21: 49; Admin Dose 20 MG; Start 12/12/16 at 21:00 Furosemide (Lasix) 80 mg DAILY PO Last administered on 12/18/16 14:18; Admin Dose 80 MG; Start 12/13/16 at 09:00 Hydrocortisone (Cortef) 10 mg DAILY PO Last administered on 12/18/16 14:14; Admin Dose 10 MG; Start 12/12/16 at 11:30 Metoprolol Tartrate (Lopressor) 25 mg BID PO Last administered on 12/18/16 14: 13; Admin Dose 25 MG; Start 12/12/16 at 21:00 Sertraline HCl (Zoloft) 25 mg DAILY PO Last administered on 12/18/16 14:12; Admin Dose 25 MG; Start 12/13/16 at 09:00 Tamsulosin HCl (Flomax) 0.4 mg HS PO Last administered on 12/17/16 21:49; Admin Dose 0.4 MG; Start 12/12/16 at 21:00 Salmeterol Xinafoate/ Fluticasone (Advair 100/50 Diskus) 1 inh BID INH Last administered on 12/18/16 14:10; Admin Dose 1 INH; Start 12/12/16 at 21:00 Ondansetron HCl (Zofran Inj) 4 mg Q6H PRN IV NAUSEA AND/OR VOMITING Last administered on 12/18/16 14:13; Admin Dose 4 MG; Start 12/12/16 at 10:30 Aspirin (Aspirin) 81 mg DAILY PO Last administered on 12/18/16 14:19; Admin Dose 81 MG; Start 12/13/16 at 09:00 Nitroglycerin (Nitroglycerin (Sl Tab) 0.4 Mg) 1 tab Q5M PRN SL CHEST PAIN; Start 12/12/16 at 10:30 Acetaminophen (Tylenol Tab) 650 mg Q6H PRN PO PAIN LEVEL 1-3 OR FEVER Last administered on 12/17/16 13:02; Admin Dose 650 MG; Start 12/12/16 at 10:30 Acetaminophen (Tylenol Supp) 650 mg Q6H PRN VA PAIN LEVEL 1-3 OR FEVER; Start 12/12/16 at 10:30 Morphine Sulfate (morphine) 1 mg Q4H PRN IV PAIN LEVEL 7-10 Last administered on 12/14/16 18:15; Admin Dose 1 MG; Start 12/12/16 at 10:30 Docusate Sodium (Colace) 100 mg Q12H PRN PO CONSTIPATION Last administered on 14:13; Admin Dose 100 MG; Start 12/12/16 at 10:30 Famotidine (Pepcid) 20 mg DAILY PO Last administered on 12/18/16 14:14; Admin Dose 20 MG; Start 12/12/16 at 12:00 Lorazepam 1 mg 1 mg Q8H PRN PO ANXIETY Last administered on 12/17/16 21:53; Admin Dose 1 MG; Start 12/12/16 at 18:30 Cefepime HCl (Maxipime 1gm/50 ml (Pmx)) 50 ml @ 100 mls/hr DAILY IVPB Last administered on 12/18/16 09:00; Admin Dose 100 MLS/HR; Start 12/13/16 at 12:30 Guaifenesin/ Codeine Phosphate 5 ml 5 ml Q4H PRN PO COUGH Last administered on 12/16/16 21:34; Admin Dose 5 ML; Start 12/14/16 at 14:00 Vancomycin HCl (Vancocin) 250 ml @ 125 mls/hr ONCE IVPB ; Start 12/18/16 at 20: 00; Stop 12/19/16 at 02:00 GENIA REEVES NP Dec 18, 2016 16:32
[2016-12-18] MEDS ORDERED: VANCOMYCIN 1 GM in NS 250 ML IVPB SCH (20:00)
== END 2016-12-18 18:20 | DRG 871 ==
LOC: E/R 07:55 → ICU 12-12 14:52 → TEL 12-13 18:42
PROVIDERS: ADMIT Family Medicine; ATTEND Family Medicine
PROC: 5A1D60Z (ICD-10-PCS; 2016-12-11)
PROC: 5A09357 Assistance with Respiratory Ventilation, Less than 24 Consecutive Hours, Continuous Positive Airway Pressure (ICD-10-PCS; principal; 2016-12-12)
DX: A41.9 Sepsis, unspecified organism (principal); J96.01 Acute respiratory failure with hypoxia; J69.0 Pneumonitis due to inhalation of food and vomit; I12.0 Hypertensive chronic kidney disease with stage 5 chronic kidney disease or end stage renal disease; N18.6 End stage renal disease; J44.9 Chronic obstructive pulmonary disease, unspecified; I48.91 Unspecified atrial fibrillation; E11.9 Type 2 diabetes mellitus without complications; E78.5 Hyperlipidemia, unspecified; Z99.2 Dependence on renal dialysis; F41.9 Anxiety disorder, unspecified; R65.20 Severe sepsis without septic shock; R73.03 Prediabetes; F32.9 Major depressive disorder, single episode, unspecified
CPT/HCPCS: 36415; 36600; 71010; 80048; 80053; 80202; 81001; 81003; 82803; 82962; 83036; 83605; 83735; 84100; 84484; 85025; 85610; 85730; 87040; 87081; 87086; 87400; 90935; 93005; 93931; 94640; 94660; 94664; 96374; 96375; 97163; J0692; J0696; J1956; J2060; J2270; J2405; J2930; J3370; J7050; P9047

== ENCOUNTER 2018-03-10 16:45 | Inpatient (IN) | END 2018-03-14 16:30 | disposition home health service (06) | DRG 673 ==

== ENCOUNTER 2018-03-17 00:20 | Inpatient (IN) | END 2018-03-24 21:00 | disposition home health service (06) | DRG 871 ==